=== PATIENT | male | born 1965 | race Two or more races ===

== ENCOUNTER 2021-08-26 11:37 | Outpatient (REF) | payer OTHER, SELFPAY ==
--- NOTE | ~2021-08-26 | XR_ITS ---
EXAMINATION: XR KNEE, RIGHT CLINICAL INFORMATION: Pain COMPARISON: None TECHNIQUE: Four views of the right knee. FINDINGS: The tricompartment joint space is maintained normal. No bony erosive changes. No loose bodies. There is anterior superior patellar enthesophyte. The soft tissues are normal. XR/XR knee RT 4V IMPRESSION: There is anterior superior patellar enthesophytes. No visible acute fracture, dislocation or subluxation seen.
== END 2021-08-26 11:38 | disposition home or self-care (01) ==
LOC: HO.XRAY 11:37
PROVIDERS: PCP Internal Medicine; Visit Provider Internal Medicine
DX: M25.561 Pain in right knee (principal)
CPT/HCPCS: 73564

== ENCOUNTER 2021-09-14 09:26 | Outpatient (REF) | payer OTHER, SELFPAY ==
--- NOTE | ~2021-09-14 | XR_ITS ---
EXAMINATION: XR LUMBOSACRAL SPINE CLINICAL INFORMATION: Low back pain. COMPARISON: None TECHNIQUE: Three views of the lumbosacral spine. FINDINGS: There is normal lumbar lordosis. The vertebral heights, alignment and disc heights are normal. There is no visible acute fracture, dislocation or lytic process seen. The paravertebral soft tissues are normal. XR/XR lumbar spine 2-3V IMPRESSION: Unremarkable lumbar spine exam.
== END 2021-09-14 09:27 | disposition home or self-care (01) ==
LOC: HO.XRAY 09:26
PROVIDERS: PCP Internal Medicine; Visit Provider Internal Medicine
DX: M54.9 Dorsalgia, unspecified (principal); R10.9 Unspecified abdominal pain
CPT/HCPCS: 72100

== ENCOUNTER 2022-04-04 09:37 | Outpatient (REF) | payer OTHER, SELFPAY ==
--- NOTE | ~2022-04-04 | CT_ITS ---
EXAMINATION: CT ABDOMEN AND PELVIS WITHOUT CONTRAST CLINICAL INFORMATION: Hematuria. Dysuria. Fever. COMPARISON: None TECHNIQUE: Multidetector volumetric imaging was performed from the superior aspect of the liver through the pubic symphysis. Sagittal and coronal reformatted images were obtained on the technologist's workstation. This CT examination was performed using dose optimization techniques as appropriate, variously including the following: *Automated exposure control *Adjustment of mA and/or kV according to patient size (this includes techniques or standardized protocols for targeted exams where dose is matched to indication/reason for exam; i.e. extremities or head) *Use of iterative reconstruction technique DLP: 668 mGy-cm FINDINGS: LUNG BASES: The visualized lung bases are unremarkable. LIVER, GALLBLADDER, AND BILIARY TREE: The liver is normal in size, shape, and attenuation. No focal hepatic lesion or biliary ductal dilatation is present. The gallbladder is unremarkable with no evidence of radiopaque gallstones, gallbladder wall thickening, or obvious pericholecystic inflammatory changes. PANCREAS: Unremarkable. SPLEEN: Unremarkable. ADRENAL GLANDS: Unremarkable. KIDNEYS AND URETERS: The kidneys are normal in size, shape, and attenuation. No hydronephrosis or hydroureter. Left lower pole 0.4 cm calculus is 14 cm from the posterior axillary line. Mild symmetric perinephric stranding. BLADDER: Unremarkable. GASTROINTESTINAL TRACT: The stomach is unremarkable. Normal caliber small bowel. No obstruction. Normal appendix. No colonic wall thickening or acute inflammation. No free air or free fluid. ABDOMINAL WALL: No significant hernia is appreciated. LYMPH NODES: Normal. VASCULAR: Normal caliber aorta with mild atherosclerotic calcification. PELVIC VISCERA: Calcifications in the prostate. Normal size prostate. OSSEOUS STRUCTURES: No acute or suspicious osseous abnormality. CT/CT abdomen pelvis wo IV con IMPRESSION: No acute findings in the abdomen or pelvis. No hydronephrosis. Nonobstructing left lower pole renal calculus. Fleischner guidelines were followed.
== END 2022-04-04 09:38 | disposition home or self-care (01) ==
LOC: HO.CT 09:37
PROVIDERS: PCP Internal Medicine; Visit Provider Family Medicine
DX: R31.9 Hematuria, unspecified (principal)
CPT/HCPCS: 74176

== ENCOUNTER → 2022-05-16 14:31 | Outpatient (BNVA) | payer OTHER, SELFPAY | PROVIDERS: PCP Internal Medicine; Visit Provider Nurse Practitioner Family | DX: R97.20 Elevated prostate specific antigen [PSA] (principal); N40.0 Benign prostatic hyperplasia without lower urinary tract symptoms; Z79.899 Other long term (current) drug therapy | CPT/HCPCS: 99202 ==

== ENCOUNTER 2022-06-03 12:20 | Outpatient (REF) | payer OTHER, SELFPAY ==
--- NOTE | ~2022-06-03 | US_ITS ---
EXAMINATION: US RETROPERITONEAL COMPLETE (RENAL) CLINICAL INFORMATION: Elevated prostate-specific antigen, benign prostatic hypertrophy, history of microscopic hematuria. COMPARISON: CT abdomen and pelvis without contrast dated 04/04/2022. TECHNIQUE: Real-time imaging of the kidneys and bladder. FINDINGS: RIGHT KIDNEY: 11.5 x 6.3 x 7.3 cm (SAG x AP x TRV). The kidney is normal in size, contour, and echogenicity. Renal cortical thickness is normal. No calculi or focal parenchymal lesions. No hydronephrosis. LEFT KIDNEY: 12.3 x 7.1 x 5.7 cm (SAG x AP x TRV). The kidney is normal in size, contour, and echogenicity. Renal cortical thickness is normal. No focal parenchymal lesions or hydronephrosis. 1.0 cm nonobstructing calculus in the lower pole. BLADDER: Distended urinary bladder measuring 556 mL. Post void residual of 11 mL. Bilateral ureteral jets are present. Prostate volume is 29 mL. US/US retroperitoneal comp IMPRESSION: 1.0 cm nonobstructing calculus in the lower left kidney.
== END 2022-06-03 12:21 | disposition home or self-care (01) ==
LOC: HO.HMGCX 12:20
PROVIDERS: PCP Internal Medicine; Visit Provider Nurse Practitioner Family
DX: R97.20 Elevated prostate specific antigen [PSA] (principal); N40.0 Benign prostatic hyperplasia without lower urinary tract symptoms
CPT/HCPCS: 76770

== ENCOUNTER 2022-06-16 07:22 | Outpatient (REF) | payer OTHER, SELFPAY | END 2022-06-16 07:23 | disposition home or self-care (01) | LOC: HO.LAB 07:22 | PROVIDERS: PCP Internal Medicine; Visit Provider Nurse Practitioner Family | DX: R97.20 Elevated prostate specific antigen [PSA] (principal) | CPT/HCPCS: 36415; 84153 ==

== ENCOUNTER → 2022-06-27 10:48 | Outpatient (BNVA) | payer OTHER, SELFPAY | PROVIDERS: PCP Internal Medicine; Visit Provider Nurse Practitioner Family | DX: N20.0 Calculus of kidney (principal); N28.1 Cyst of kidney, acquired; N40.0 Benign prostatic hyperplasia without lower urinary tract symptoms; R97.20 Elevated prostate specific antigen [PSA]; Z79.4 Long term (current) use of insulin; Z79.899 Other long term (current) drug therapy | CPT/HCPCS: 51798; 99212 ==

== ENCOUNTER → 2022-08-03 09:39 | Outpatient (BNVA) | payer OTHER, SELFPAY | PROVIDERS: PCP Internal Medicine; Visit Provider Nurse Practitioner Family | DX: N20.0 Calculus of kidney (principal); N28.1 Cyst of kidney, acquired | CPT/HCPCS: 99212 ==

== ENCOUNTER 2022-08-17 06:35 | Day surgery (SDC) | payer OTHER, SELFPAY ==
--- NOTE | 2022-08-16 10:19 | HO.ANESPROP2 ---
Documented by User: Sushma Orellana NP 08/16/22 10:20 HPI - Anesthesia Eval Consult details Narrative: 57yo M for Left ESWL PMFSH Active Problems Active Problems: All Active Problems (Updated 06/27/22 @ 19:16 by AJITH Wagner-) Nephrolithiasis (Acute) Renal cyst (Acute) BPH (benign prostatic hyperplasia) (Acute) Elevated PSA (Acute) Surgical History Surgical History (Updated 08/17/22 @ 07:23 by Shari Sharma RN) History of arthroscopy of right shoulder History of colonoscopy Social History Social History Patient Tobacco Use Status: Former Tobacco user Use of substances other than those prescribed or required for medical reasons: No Are you DNR?: No Advance Directives: No Advance Directives Information Provided: Yes Meds Allergies Allergy/AdvReac Type Severity Reaction Status Date / Time No Known Allergies Allergy Verified 08/03/22 14:22 Home Medications Medication Instructions Recorded Confirmed Last Taken Type atorvastatin 20 mg tablet 20 mg PO DAILY 05/13/22 08/03/22 Unknown History dulaglutide 0.75 mg/0.5 mL mg subcut QWEEK 05/13/22 08/03/22 Unknown History subcutaneous pen injector (Trulicity) gabapentin 800 mg tablet 800 mg PO TID 05/13/22 08/03/22 Unknown History lisinopril 10 1 tab PO DAILY 05/13/22 08/03/22 Unknown History mg-hydrochlorothiazide 12.5 mg tablet sildenafil 50 mg tablet (Viagra) 50 mg PO DAILY PRN 05/13/22 08/03/22 Unknown History Exam Exam Date and Time: August 16, 2022 1019 Assessment and Plan Assessment Anesthesia Assessment: Chart Reviewed Documented by User: Feng Trent MD 08/17/22 09:21 PMFSH Family History Family history of problems with anesthesia: No Surgical History Surgical History (Updated 08/17/22 @ 07:23 by Shari Sharma RN) History of arthroscopy of right shoulder History of colonoscopy History of Problems with Anesthesia: No Social History Social History Patient Tobacco Use Status: Former Tobacco user Use of substances other than those prescribed or required for medical reasons: No Are you DNR?: No Advance Directives: No Advance Directives Information Provided: Yes Meds Allergies Allergy/AdvReac Type Severity Reaction Status Date / Time No Known Allergies Allergy Verified 08/03/22 14:22 Home Medications Medication Instructions Recorded Confirmed Last Taken Type atorvastatin 20 mg tablet 20 mg PO DAILY 05/13/22 08/03/22 Unknown History dulaglutide 0.75 mg/0.5 mL mg subcut QWEEK 05/13/22 08/03/22 Unknown History subcutaneous pen injector (Trulicity) gabapentin 800 mg tablet 800 mg PO TID 05/13/22 08/03/22 Unknown History lisinopril 10 1 tab PO DAILY 05/13/22 08/03/22 Unknown History mg-hydrochlorothiazide 12.5 mg tablet sildenafil 50 mg tablet (Viagra) 50 mg PO DAILY PRN 05/13/22 08/03/22 Unknown History Exam Airway Mallampati Class: III TM Dist: <=3cm Neck ROM: Full Loose/Missing/Broken Teeth: No Heart: ok Lungs: ok Assessment and Plan Assessment Anesthesia Assessment: Anesthesia Plan Discussed Final Anesthetic Review Family History of Problems with Anesthesia: No History of Problems with Anesthesia: No NPO: Yes ASA Class: III Final Preanesthetic Review: No Changes in Pt Med Stat, Meds/Allgs Chart Reviewed, Consent Obtained/Reviewed and Anes Risks/Benef Reviewed Patient Risk: Intermediate Procedure Risk: Low Anesthetic Plan Anesthetic Plan: GA and Agree w/ Assess. and Plan Disposition: Standard PACU
--- NOTE | ~2022-08-17 | XR_ITS ---
EXAMINATION: XR ABDOMEN KUB CLINICAL INDICATION: Left kidney stone COMPARISON: None available. TECHNIQUE: AP view of the abdomen. FINDINGS: There is a large amount of stool in the colon especially right colon overlying the right kidney. There is a 6 no radiopaque calculi lower pole left kidney. No additional radiopaque calculi seen left kidney. There is no organomegaly. No gross bony abnormality. XR/XR KUB IMPRESSION: 1. 6 radiopaque calculi lower pole left kidney. 2. Moderate to significant constipation especially in the right colon overlying the right kidney.
[2022-08-17 07:24] VITALS: BP 142/77; PULSE 80; RESP 16; TEMP 36.4; O2SAT 97; BMI 37.7
[2022-08-17 07:38] LABS: Glucose, Whole Blood 172 mg/dL (60-115)
[2022-08-17] MEDS: Lactated Ringers 1,000 ML 100 ML IVCONT (07:43)
--- NOTE | 2022-08-17 07:47 | P.HPSUR_ITS ---
Pre-Procedural Eval Section A Date of Service: 08/17/22 The patient is an INPATIENT: No Changes since office visit: No Cold of Flu in the past 2 weeks, No New Medical Problems, No Changes in Medication and No Patient answered all questions The History & Physical has been completed within 30 days and I have reviewed it.: No Section B Chief Complaint: Calculus of kidney Details of Present Illness: left renal stone Relevant Social History: None Present Medications: see Short Stay Collaborative assessment Medical History: No relevant PMH History of Previous Operations: Relevant previous surgery/procedure and date(s) Allergies: Allergies Allergy/AdvReac Type Severity Reaction Status Date / Time No Known Allergies Allergy Verified 08/03/22 14:22 Review of Systems Sugical H&P ROS: Negative: Constitution, Cardiovascular, Respiratory, Neurological, Psychiatric, Hem-Onc, Allergic/Immunologic, Gastrointestinal, Genitourinary, Musculoskeletal, Integumentary, Endocrine and Eyes/Ears/No se/Throat Exam Surgical H&P Exam: Normal: HEENT, Normal: Heart, Normal: Lungs, Normal: Extremities, Normal: Abdomen, Normal: Skin and Normal: Neurological Plan Diagnosis/Plan: Unchanged (left eswl) I have reviewed the history and physical and performed a pertinent physical examination on my patient. No changes have occurred unless specified. Time Spent With Patient Time: Total time managing care of this patient today ____ minutes.
--- NOTE | 2022-08-17 09:26 | W.PM.OPN ---
Operative Note Operative Note Date of Service: 08/17/22 Narrative: PreOperative Diagnosis: left Renal stones Post Operative Diagnosis: left Renal stones Procedure: left ESWL Surgeon: Dr Wei Vernon Anesthesia: mac/sedation Indications for procedure: The patient understands ESWL may be a staged procedure and subsequent intervention may be required based on imaging after ESWL. Quoted stone clearance rates for a solitary procedure are in the 70-80% range based primarily on stone location. They also understand there is a risk of bleeding to the kidney, infection, damage to adjacent organs, and stone migration following the procedure. - Imaging 1cm lower pole Procedure: After informed consent was verified the patient was brought to the operating room and placed in a supine position. Anesthesia was performed per protocol. Safety pause time-out was performed. Imaging was displayed in the room and laterality confirmed. ESWL was performed. The 1st 500 shocks were performed at 60 hertz. These were performed with increasing power. Once maximum power was reached the rate was increased to 180 hertz. A total of 2500 shocks were given. Targeted imaging with ultrasound/fluoroscopy showed stone smudging suggestive of disintegration. The patient tolerated the procedure well and was transferred to the recovery area upon completion. Post procedure imaging will be organized. There was no evidence for flank discoloration.
[2022-08-17 09:48] VITALS: BP 132/69; PULSE 81; RESP 20; TEMP 36.6; O2SAT 97
[2022-08-17 09:53] VITALS: BP 130/76; PULSE 71; RESP 16; O2SAT 97
[2022-08-17 09:58] VITALS: BP 134/72; PULSE 70; RESP 17; O2SAT 97
[2022-08-17 10:03] VITALS: BP 132/68; PULSE 67; RESP 17; O2SAT 100
[2022-08-17] MEDS: oxyCODONE HCl Immed Release 5 MG TABLET PO (10:06)
[2022-08-17 10:22] VITALS: BP 150/75; PULSE 71; RESP 18; TEMP 36.1; O2SAT 99
== END 2022-08-17 11:36 | disposition home or self-care (01) ==
PROVIDERS: PCP Internal Medicine; Visit Provider Urology
PROC: (CPT 50590; principal; 2022-08-17 09:10)
DX: N20.0 Calculus of kidney (principal); N28.1 Cyst of kidney, acquired; N40.0 Benign prostatic hyperplasia without lower urinary tract symptoms; R97.20 Elevated prostate specific antigen [PSA]; Z79.85 Long-term (current) use of injectable non-insulin antidiabetic drugs; Z79.899 Other long term (current) drug therapy; Z87.891 Personal history of nicotine dependence
CPT/HCPCS: 50590; 74018; 82947; J0131; J1885; J3010

== ENCOUNTER 2023-05-22 12:14 | Outpatient (REF) | payer OTHER, SELFPAY ==
--- NOTE | ~2023-05-22 | XR_ITS ---
EXAMINATION: XR SHOULDER, LEFT CLINICAL INFORMATION: Pain. COMPARISON: None available. TECHNIQUE: AP external rotation, Grashey, scapular Y, and axillary views of the left shoulder. FINDINGS: Bony alignment and mineralization are normal. The glenohumeral joint is intact and shows mild osteoarthritic change. The acromioclavicular and coracoclavicular intervals are normal. No fracture or dislocation is seen. There is calcific tendinitis of the left rotator cuff insertion. No foreign body is seen. There is no left pneumothorax. XR/XR shoulder LT min 2V IMPRESSION: 1. 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 2. There is calcific tendinitis of the left rotator cuff insertion.
== END 2023-05-22 12:15 | disposition home or self-care (01) ==
LOC: HO.HMGCX 12:14
PROVIDERS: PCP Internal Medicine; Visit Provider Internal Medicine
DX: M25.512 Pain in left shoulder (principal); G89.29 Other chronic pain
CPT/HCPCS: 73030

== ENCOUNTER → 2024-03-18 15:21 | Outpatient (BNV) | payer OTHER, SELFPAY | PROVIDERS: PCP Internal Medicine; Visit Provider Radiology Diagnostic Radiology | DX: R06.2 Wheezing (principal) | CPT/HCPCS: 71046 ==

== ENCOUNTER 2024-04-23 09:56 | Outpatient (AMB) | payer OTHER, SELFPAY ==
--- NOTE | 2024-04-23 10:11 | MHC.OFFVIS ---
Vital Signs 04/23/24 10:18 Height 5 ft 9 in Weight 260 lb BMI 38.4 Intake Visit Reasons: CARETAKER RESORT-Trigger RF, LT hand/locking limited ROM Intake Note: Mark is a 59 year old right hand dominant male who presents today for a new patient evaluation of his left hand ring finger. States his finger is locking, especially in the morning. His symptoms presented about a year ago that has been getting worse. He also has limited ROM and no strength in his finger. He has numbness and tingling in the mornings. No known injury. No other tx. Allergies No Known Allergies Allergy (Verified 04/23/24 10:21) HPI HPI CARETAKER RESORT-Trigger RF, LT hand/locking limited ROM: Details: Mark is a 59 year old right hand dominant man who presents with complaints of his left ring finger locking. He complains of painful locking & catching of the left ring finger. He complains of weakness with waterproofer strength and says this is very painful for him. He reports intermittent numbness & tingling in his hands, not every day but occasionally. He says he has a NCS done on his right side several years ago, showing a pinched nerve somewhere . 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 Review of Systems Const All systems reviewed & are unremarkable except as noted in HPI and below Physical Exam Vital Signs: BMI result Body Mass Index 38.4 Const General: cooperative, healthy appearing and no acute distress Orientation/consciousness: patient oriented x3 HEENT Head: Yes normocephalic and Yes atraumatic Eyes EOM: EOMs intact bilaterally Resp Effort & Inspection: normal respiratory effort and able to speak in complete sentences Cardio Jugular venous distension: no JVD Skin General skin exam: turgor normal Rashes: no rashes Neuro General: patient oriented x3 Extrem Other: Evaluation of Left Upper Extremity: The patient is alert, oriented, and in no acute distress Neuro: Median, Ulnar, Radial nerves motor and sensory intact and sensation is normal to the tips of all digits No thenar or intrinsic wasting Good APB muscle belly firing and good finger cross Vascular: Cap refill brisk ROM: He can make a fist and extend all his digits Visible & palpable locking & catching of the ring finger Tender over the ring finger a1 gris Skin: No lacerations or abrasions. General: No Ecchymosis. No Erythema or evidence of infection. Psych Appearance: grossly normal Affect: normal affect Attitude: cooperative Assessment & Plan Assessment & Plan (1) Trigger finger, left ring finger: Code(s): M65.342 - Trigger finger, left ring finger Category: Medical (2) Bilateral hand numbness: Code(s): R20.0 - Anesthesia of skin Category: Medical (3) Diabetes mellitus: Code(s): E11.9 - Type 2 diabetes mellitus without complications Category: Medical Plan Assessment & Plan: 1. Left ring finger trigger finger I educated him about this condition I discussed operative and non-operative treatment options The patient would like to proceed with surgery The risks and benefits of operative treatment were discussed with the patient and the patient wishes to proceed with surgery. These risks include, but are not limited to risk of damage to blood vessels, nerves, tendons, infection, recurrence, incomplete relief of preoperative symptoms, persistent pain, possible need for further surgery and the risks associated with regional blocks and anesthesia. The plan is to take the patient to the operating room sometime in the next few weeks for the following procedures: 1. Left ring finger trigger release, under local All of the preoperative paperwork including the consent was reviewed today. All the patient's questions were answered. The patient understands that they will be contacted by our surgery aide soon to schedule this procedure He denies blood thinners, asthma, heart, lung, kidney issues He is a Diabetic, his most recent HgA1c was 6.5% 2. Bilateral hand numbness Symptoms intermittent, and occasional, primarily in the mornings He is unsure how often this occurs, and in what specific fingers He does not really want a nerve conduction study right now. We will wait and see how he is doing following his trigger release Scribed for Mercedes Bender MD by Zenon Perera medical records supervisor, on 04/23/24 at 10:40 AM, EST. Coding Level of Care Code New Pt Level 4 (11691) Diagnoses Trigger finger, left ring finger M65.342 Bilateral hand numbness R20.0 Diabetes mellitus E11.9
[2024-04-23 10:18] VITALS: BMI 38.4
--- OUTSIDE RECORDS SUMMARY | 2024-04-23 11:27 | XMS_ITS | Encounter Summary ---
Author Organization [employer] Address [address] 7 [place] [address] Care Team Providers Care Hydro Excavation Operator Name Role Phone Joseph Guerrero MD Primary Care Provider [phone] Reason for Visit * Reason Onset Date Comments Call Back Request 07/28/2023 Encounter Details Date Type Department Care Team (Late st Contact Info) Description 07/28/[address] [facility] [address] [place] [address] Joseph Guerrero MD [address] [place] [address] Call Back Request Social History Tobacco Use Types Packs/Day Years Used Date Smoking Tobacco: Former Cigarettes 1 18 1 7 - 2004 Passive Smoke Exposure: Never Smokeless Tobacco: Former Quit: 2004 Alcohol Use Standard Drinks/Week Comments Not Currently 0 (1 standard drink = 0.6 oz pur e alcohol) Depression Answer Date Recorded Patient Health Questionnaire-9 Score 0 02/10/2022 Depression Answer Date Recorded Patient Health Questionnaire-2 Score 0 02/10/2022 Sex and Gender Information Value Date Recorded Sex Assigned at Male 12/27/2021 10:34 AM EDT Legal Sex Male 10:34 AM EDT Gender Identity Male 12/27/2021 10:34 AM EDT Sexual Orientation Straight 06/03/2022 10 :16 AM EDT documented as of this encounter Miscellaneous Notes * Telephone Encounter - Wing Tuyet RN - 07/28/2023 1:36 PM EDT Tc to pt to explained that Trulicity 4.5 mg written on 07/05 is already at the [facility] pharmacy. Unable to reach pt, left message for pt to call back. * Telephone Encounter - Mariely Jiménez - 07/28/2023 12:12 PM EDT Tc from pt requesting a call back, pt is requesting Trulicity 3MG to be send to [facility]acy. documented in this encounter Plan of Treatment Upcoming Encounters Date Type Department Care Team (Late st Contact Info) Description 06/04/2024 10:00 AM EDT Office Visit [facility] [address] [place] [address] Joseph Guerrero MD [address] [place] [address] documented as of this encounter Visit Diagnoses Not on filedocumented in this encounter Additional Health Concerns Assessment Noted Time PHQ-9 Depression Total Score: 0 02/11/20 22 10:58 AM EST documented as of this encounter Care Teams Hydro Excavation Operator Relationship Specialty Start Date End Date Joseph Guerrero MD [address] [place] [address] PCP - General Internal Medicine 11/22/17 documented as of this encounter
--- OUTSIDE RECORDS SUMMARY | 2024-04-23 11:27 | XMS_ITS | Encounter Summary ---
Author Organization [employer] Address [address] [place] [address] [address] [place] [address] Care Team Providers Care Machine Ii Engraver Name Role Phone Joseph Guerrero MD Primary Care Provider [phone] Encounter Details Date Type Department Care Team ([facility] Contact Info) Description 05/26/2023 Orders Only [facility] [address] [place], [place] [phone] Josehp Guerrero MD [address] [place], [place] [phone] Social History Tobacco Use Types Packs/Day Years Used Date Smoking Tobacco: Former Cigarettes 1 18 1 987 - 2004 Passive Smoke Exposure: Never Smokeless [...] AM EDT documented as of this encounter Plan of Treatment Upcoming Encounters Date Type Department Care Team ([facility] Contact Info) Description 06/04/2024 10:00 AM EDT Office Visit [facility] [address] [place], [place] [phone] Joseph Guerrero MD [address] [place] [address] documented as of this encounter Visit Diagnoses Not on filedocumented in this encounter Additional Health Concerns Assessment Noted Time PHQ-9 Depression Total Score: 0 02/11/20 22 10:58 AM EST documented as of this encounter Care Teams Machine Ii Engraver Relationship Specialty Start Date End Date Joseph Guerrero MD [address] [place] [address] PCP - General Internal Medicine 11/22/17 documented as of this encounter
--- OUTSIDE RECORDS SUMMARY | 2024-04-23 11:27 | XMS_ITS | Encounter Summary ---
Author Organization [employer] [facility] Address [address] [place] [address] [address] [place] [address] Care Team Providers Care Longwall Shearer Operator Name Role Phone Joseph Guerrero MD Primary Care Provider [phone]- [phone] Encounter Details Date Type Department Care Team (Late st Contact Info) Description 11/20/2023 Orders Only [facility] [address] [place], [place] [phone] ProviderAdam MD Social History Tobacco Use Types Packs/Day Years [...] 10:00 AM EDT Office Visit [facility] [address] [place], [place] [phone] Joseph Guerrero MD [address] [place] [address] documented as of this encounter Procedures Procedure Name Priority Date/Time Associated Diagnosis Comments HM COLONOSCOPY Routine 11/20/2023 4:09 PM EDT HM COLONOSCOPY Routine 11/20/2023 4:06 PM EDT documented in this encounter Results * Hm Colonoscopy (11/20/2023 4:09 PM EDT) us Historical Provider HEALTH MAINTENANCE Final Result * Hm Colonoscopy (11/20/2023 4:06 PM EDT) us Historical Provider HEALTH MAINTENANCE Final Result documented in this encounter Visit Diagnoses Not on filedocumented in this encounter Additional Health Concerns Assessment Noted Time PHQ-9 Depression Total Score: 0 02/11/20 22 10:58 AM EST documented as of this encounter Care Teams Longwall Shearer Operator Relationship Specialty Start Date End Date Joseph Guerrero MD [address] [place] [id number] PCP - General Internal Medicine 11/22/17 documented as of this encounter
--- OUTSIDE RECORDS SUMMARY | 2024-04-23 11:28 | XMS_ITS | Clinical Summary ---
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 Phone Joseph Guerrero MD Primary Care Provider Allergies No known active allergies Medications diclofenac (Cataflam) 50 MG tablet take 1 tablet by oral route 3 times every day 2 Active HYDROcodone-acet aminophen (Niotaze) 5-325 MG tablet take 1 tablet by oral route every 4 - 6 hours as needed for pain 1 Active metFORMIN (Glucophage) 500 MG tablet take 1 tablet by oral route 2 times every day with morning and evening meals 1 Active Blood Pressure Monitoring (Comfort Touch BP Cuff/Medium) misc Active tamsulosin (Flomax) 0.4 MG 24 hr capsuleIndicatio ns:Kidney stone TAKE ONE CAPSULE DAILY 30 MINUTES FOLLOWING THE SAME MEAL EACH DAY 28 capsule 3 Active diphenhydrAMINE (BENADryl) 25 MG tabletIndication s:Adjustment insomnia Take 1 tablet (25 mg) by mouth if needed at bedtime for sleep. 2 tabs at bedtime 30 tablet 3 Active atorvastatin (Lipitor) 20 MG tablet TAKE ONE TABLET BY MOUTH EVERY DAY 90 tablet 1 4 Active famotidine (Pepcid) 20 MG tabletIndication s:Post-nasal drip Take 1 tablet (20 mg) by mouth Once per day. 30 tablet 1 4 06/21/19 25 Active pseudoephedrine (Sudafed) 30 MG tabletIndication s:Other cough Take 1 tablet (30 mg) by mouth every 4 (four) hours if needed for congestion for up to 10 days. 30 tablet 4 Active albuterol 108 (90 Base) MCG/ACT inhalerIndicatio ns:Other cough Inhale 2 puffs every 4 (four) hours if needed for wheezing. 18 g 4 06/21/19 25 Active Diclofenac Sodium 1 % gelIndications:A rthritis of left shoulder region To apply to the affected area 3 times a day 100 g 4 Active dulaglutide (Trulicity) 4.5 MG/0.5ML solution pen-injectorIndi cations:Type 2 diabetes mellitus with diabetic neuropathy, without long-term current use of insulin ([facility]),Obesit y (BMI 30-39.9) Inject 4.5 mg under the skin 1 (one) time per week. 4 each 11 4 Active gabapentin (Neurontin) 800 MG tablet TAKE ONE TABLET BY MOUTH THREE TIMES DAILY 90 tablet 2 4 Active Viagra 50 MG tabletIndication s:Other male erectile dysfunction TAKE 1 TABLET 1 HOUR BEFORE SEXUAL RELATIONS ONCE DAILY NEEDED. 8 tablet 5 4 Active losartan-hydroCH LOROthiazide (Hyzaar) 50-12.5 MG tabletIndication s:Primary hypertension,Whe ezing Take 1 tablet by mouth Once per day. 30 tablet 11 5 03/05/19 26 Active melatonin 5 MG tablet TAKE ONE TABLET AT BEDTIME 30 tablet 3 5 Active Active Problems Problem Noted Date Diagnosed Date Meralgia paresthetica of left side 03/05/2024 Dysuria 03/31/2022 Assessment & Plan (03/31/2022 11:37 AM EST): Patient febrile with dysuria, and fever, Dipstick with blood and LE, will start levofloxacin. No CVAT. Will send labs, UCx and CT given hematuria with pain Hematuria 03/31/2022 Assessment & Plan (03/31/2022 11:38 AM EST): Hematuria with pain, will send labs and STAT CT abdomino-pelvis w/o contrast, will followup with results Hypertensive disorder 02/02/2022 Neuropathy due to type 2 diabetes mellitus 02/02 Type 2 diabetes mellitus 02/02/2022 Erectile dysfunction 12/01/2020 Microhematuria 06/22/2017 Encounters Date Type Department Care Team Description 03/15/2024 Refill [facility] [address] [place] [address] Joseph Guerrero MD 03/06/2024 Travel 03/05/2024 2:45 PM EST Office Visit [facility] [address] [place] [address] Joseph Guerrero MD Annual physical exam (Primary Dx); Primary hypertension; Type 2 diabetes mellitus with diabetic neuropathy, without long-term current use of insulin ([facility]); Meralgia paresthetica of left side; Wheezing; Trigger ring finger of left hand 03/05/2024 Travel 02/26/2024 Patient Outreach [facility] [address] [place] [address] Joseph Guerrero MD Pre-visit Planning ([facility] unable to reach [facility]) 01/22/2024 Telephone [facility] [address] [place] [address] Joseph Guerrero MD Chart Prep from Last 3 Months Immunizations Name Administration Dates Next Due Influenza Injectable Quadriv alant Preservative Free IIV4 MDCK 12/30/2021 Influenza injectable quadrivalent preservative f ree 02/05/2021,12/11/2019 Moderna Covid-19 Vaccine 12+ 06/15/2020,05/18/19 21 Pneumococcal Polysaccharide PPSV23 12/11/2019 Tdap 04/20/2022,11/22/2017 Zoster, Recombinant 12/11/2019 Social History Tobacco Use Types Packs/Day Years Used Date Smoking Tobacco: Former Cigarettes 1 18 1 7 - 2004 Passive Smoke Exposure: Never Smokeless Tobacco: Former Quit: 2004 Tobacco Cessation:Counseling Given: Not Answered Alcohol Use Standard Drinks/Week Comments Not Currently [...] Orientation Straight 06/03/2022 10 :16 AM EDT Last Filed Vital Signs Vital Sign Reading Time Taken Comments Blood Pressure 152/85 03/05/2024 2:53 PM EST Pulse 78 03/05/2024 2:53 PM EST Temperature 36.6 ??C (97.8 ??F) 03/05/2024 2:53 PM ES T Respiratory Rate 20 03/05/2024 2:53 PM EST Oxygen Saturation 99% 03/05/2024 2:53 PM EST Inhaled Oxygen Concentration - - Weight 119 kg (263 lb) 03/05/2024 2:53 PM EST Height 175.3 cm (5' 9 ) 03/05/2024 2:53 PM EST Body Mass Index 38.84 03/05/2024 2:53 PM EST Plan of Treatment Upcoming Encounters Date Type Department Care Team (Late st Contact Info) Description 06/04/2024 10:00 AM EDT Office Visit [facility] [address] [place] [address] Joseph Guerrero MD [address] [place] [address] Health Maintenance Due Date Last Done Comments CT Colonography 1965 Dental Oral Exam 1965 Dental Prophylaxis 1965 FIT DNA/Cologuard 1965 FIT 1965 FOBT 1965 HIV Screening 1965 SDOH Screening 1965 Sigmoidoscopy 1965 Alcohol/Substance Use Screening 1977 Hepatitis C Screening 1983 Hepatitis B Vaccines (1 of 3 - 19+ 3-dose series) 1984 Zoster Vaccines (2 of 2) 02/05/2020 12/11/2019 Diabetes: Urine Protein Screening 12/02/2020 12/03/2019 Pneumococcal Vaccine: 50+ Years (2 of 2 - PCV) 12/10/2020 12/11/2019 Lipid Panel 04/22/2022 04/22/2021, 12/03/2019 Depression Screening 02/10/2023 02/10/2022, 02/11/20 Dental X-Ray: Bitewings 06/05/2023 06/03/2022 Diabetes: Foot Exam 10/13/2023 10/12/2022, 10/12/2022, 10/12/2022, Additional history exists Influenza Vaccine (#1) 2023 , 02/05/2021, 12/11/2019 Diabetes: Hemoglobin A1C 09/02/2024 025, 06/21/2023, 03/06/2023, Additional history exists Tobacco Screening 03/05/2025 03/05/2024 Dental X-Ray: Full Mouth 06/04/2025 06/03/2022 Eye Exam 09/27/2025 09/28/2023, 08/0 02/2023, 09/28/2023, Additional history exists DTaP/Tdap/Td Vaccines (3 - Td or Tdap) 04/20/2032 04/20/2022, 11/22/2017 Colonoscopy 11/19/2033 11/20/2023, 11/20/2023 Colorectal Cancer Screening 11/19/2033 RSV Patients and Patients Aged 60 years or older (1 - 1-dose 75+ series) 2040 COVID-19 Vaccine Completed 12/27/2023, , 12/30/2021, Additional history exists HIB Vaccines Aged Out No longer eligi ble based on patient's age to complete this topic HPV Vaccines Aged Out No longer eligi ble based on patient's age to complete this topic Hepatitis A Vaccines Aged Out No long er eligible based on patient's age to complete this topic IPV Vaccines Aged Out No longer eligi ble based on patient's age to complete this topic Meningococcal Vaccine Aged Out No cathryn charla eligible based on patient's age to complete this topic RSV under 20 months Aged Out No longe r eligible based on patient's age to complete this topic Rotavirus Vaccines Aged Out No longer eligible based on patient's age to complete this topic Procedures Procedure Name Priority Date/Time Associated Diagnosis Comments XR CHEST 2 VIEWS Routine 03/18/2024 3:21 PM EST Wheezing POCT GLUCOSE Routine 03/05/2024 4:06 PM EST Type 2 diabetes mellitus with diabetic neuropathy, without long-term current use of insulin ([facility]) POCT GLYCATED HEMOGLOBIN, TOTAL Routine 03/05/2024 4:05 PM EST Type 2 diabetes mellitus with diabetic neuropathy, without long-term current use of insulin ([facility]) HM COLONOSCOPY Routine 11/20/2023 4:06 PM EDT INTRAORAL - COMPLETE SERIES OF RADIOGRAPHIC IMAGES Routine 06/03/2022 10:00 AM EDT LIPID PANEL, STANDARD Routine 04/22/2021 8:31 AM EST ALBUMIN, RANDOM URINE W/CREATININE Routine 12/03/2019 8:24 AM EDT from Last 3 Months or Most Recently Relevant to Health Maintenance Results * XR Chest 2 Views (03/18/2024 3:21 PM EST) Anatomical Region Laterality Modality Chest Radiographic Eveline ging 03/18/2024 3:21 PM EST Narrative 03/18/2024 4:07 PM EST ? [facility] ?[address] [facility] ? [place] [address] ?XRay Report ? Signed ? Patient: Amado,Mark ?MR#: [id number] ? : 1965 ?Acct:[id number] ? Age/Sex: 58 / M ?ADM Date: 03/18/24 ? Loc: HO.HMGCX ? Attending Dr: Joseph Guerrero MD ? Ordering Physician: Joseph Guerrero MD ?? Date of Service: 03/18/24 ?? Procedure(s): XR chest 2V ?? Accession Number(s): [id number] ? cc: Joseph Guerrero MD ? EXAMINATION: ?? XR CHEST ? CLINICAL INFORMATION: ?? wheezing x 1 year ? COMPARISON: ?? None available. ? TECHNIQUE: ?? 2 views of the chest were obtained. ? FINDINGS: ?? No significant abnormality is noted involving the heart, lungs, ?? mediastinum, bony thorax or soft tissues. ? XR/XR chest 2V ?? IMPRESSION: ?? Unremarkable chest examination. ? Electronically signed by: ??Rocco Fan MD ??03/18/2024 04:04 PM EST RP ? Dictated By: ?Mita,Rocco S MD ? Signed By: ?<Electronically signed by Rocco S Mita, MD in OV> ?03/18/24 1604 ? DD/ 1521 ? TD/TT: 03/18/24 1525 ? Bias Binding Cutter: FANNY ? Procedure Note Donhazelter, Image - 03/18/2024 [facility] Adult [facility] [address] [place] [address] [place] [address] XRay Report Signed Patient: Kaylin Fischer#: [id number] : 1965Acct:[id number] Age/Sex: 58 / MADM Date: 03/18/24 [facility] Dr: Joseph Guerrero MD Ordering Physician: Joseph Guerrero MD Date of Service: 03/18/24 Procedure(s): XR chest 2V Accession Number(s): [id number] cc: Joseph Guerrero MD EXAMINATION: XR CHEST CLINICAL INFORMATION: wheezing x 1 year COMPARISON: None available. TECHNIQUE: 2 views of the chest were obtained. FINDINGS: No significant abnormality is noted involving the heart, lungs, mediastinum, bony thorax or soft tissues. XR/XR chest 2V IMPRESSION: Unremarkable chest examination. Electronically signed by: Rocco Fan MD 03/18/2024 04:04 PM EST Dictated By: Rocco Fan MD Signed By: <Electronically signed by Rocco Fan MD in OV> 03/18/24 1604 DD/ 1521 TD/TT: 03/18/24 1525 Bias Binding Cutter: FANNY us Joseph Guerrero MD IMG XR PROCEDURES Final Res ult * POCT Glucose (03/05/2024 4:06 PM EST) Glucose Blood, POC 153 60 - 200 mg/dL QC Media Lot # [id number] Lot# Expiration Date 482,[id number] Blood Capillary blood specimen / Unknown 03/05/2024 4:06 PM EST Joseph Guerrero MD POINT OF CARE TEST ENTER/ED IT ORDERABLES Final Result * (ABNORMAL) POCT HGB A1C (03/05/2024 4:05 PM EST) Hemoglobin A1C 6.5(A) 4.0 - 6.0 % QC Media Lot # [id number] Comment:RANDOM Lot# Expiration Date [id number] Blood 03/05/2024 4:05 PM EST Joseph Guerrero MD POINT OF CARE TEST ENTER/ED IT ORDERABLES Final Result * Hm Colonoscopy (11/20/2023 4:06 PM EDT) Historical Provider HEALTH MAINTENANCE Final Result * (ABNORMAL) LIPID PANEL, STANDARD (04/22/2021 8:31 AM EST) Chol/HDLC Ratio 3.3 <5.0 (calc) [facility] Cholesterol, Total 150 <200 mg/dL [facility] HDL Cholesterol 46 > OR = 40 mg/dL [facility] LDL Cholesterol 77 mg/dL (calc) [facility] Comment: Reference range: <100 ?? Desirable range <100 mg/dL for primary prevention; ?? <70 mg/dL for patients with CHD or diabetic patients ?? with > or = 2 CHD risk factors. ?? LDL-C is now calculated using the Kat ?? calculation, which is a validated novel method providing ?? better accuracy than the Friedewald equation in the ?? estimation of LDL-C. ?? Matt RAMIREZ et al. MARBIN. 2013;310(19): 2018-5508 ?? (http://education.Connectv.com/faq/BHF081) Non-HDL Cholesterol 104 <130 mg/dL (calc) [facility] Comment: For patients with diabetes plus 1 major ASCVD risk ?? factor, treating to a non-HDL-C goal of <100 mg/dL ?? (LDL-C of <70 mg/dL) is considered a therapeutic ?? option. Triglycerides 178(H) <150 mg/dL [facility] 04/22/2021 8:31 AM EST us Joseph Guerrero MD LAB BLOOD ORDERABLES Final Result Performing Organization Address [facility] de Phone Number [facility] [address] * ALBUMIN, RANDOM URINE W/CREATININE (12/03/2019 8:24 AM EDT) Microalbumin Urine 4.2 See Note: mg/dL [facility] Comment: Reference Range: ?? Reference Range Not established Microalb/Creat Ratio 18 <30 mcg/mg creat [facility] Comment: ?? The ADA defines abnormalities in albumin excretion as follows: ?? Category ? Result (mcg/mg creatinine) ?? Normal ?<30 Microalbuminuria ? 30-299 ?? Clinical albuminuria ?? > OR = 300 ?? The ADA recommends that at least two of three specimens collected within a 3-6 month period be abnormal before considering a patient to be within a diagnostic category. 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
--- OUTSIDE RECORDS SUMMARY | 2024-04-23 11:28 | XMS_ITS | Data Portability ---
Author Organization HALLE Nguyen s, [address] Address [address] [place] [address] Assessment No assessment recorded. Plan of Treatment Reminders Order Date Submit Date Provider Last Modified By Organization Details Last Modified Time Details Appointments None recorded. Lab streptococc us group A, culture, throat 2022 023 [email or web address] [facility] ([facility], [address] [place] [address], [place], [address], 3 08:06:51 SARS CoV 2 (COVID-19) Ag, QL, [place], upper respiratory specimen 2022 023 [facility], [address] [place], [address], 3 08:58:10 rapid strep group A, throat 2022 023 [email or web address] [facility], [address] [place], [address], 3 08:51:23 rapid flu (A+B) 2022 023 [facility], [address] [place], [address], 3 08:57:01 Referral None recorded. Procedures None recorded. Surgeries None recorded. Imaging XR, chest, 2 view 2022 023 [email or web address] [facility], [address] [place] [address], [place], [address], 10:34:17 Medication Orders doxycycline hyclate 100 mg capsule 2022 023 [facility], [address] [place] [address], [id number], 3 12:58:50 ProAir HFA 90 mcg/actuati on aerosol inhaler 2022 023 [facility], [address] [place], [place], [id number], 3 13:48:22 benzonatate 100 mg capsule 2022 023 [facility], [address] [place] [address], [id number], 12:58:50 Patient TargetsNo targets recorded. Patient Instructions Encounter Date Encounter Id Patient Instructions Last Modified By Organization Details Last Modified Time 09/22/2022 [id number] sore throat: car e instructions [email or web address] Not available 09/22/2022 08:50:22 Based on clinica l presentation, you are being diagnosed with Pneumonia. I am going to treat with an antibiotic. I would recommend a follow up visit with your PCP in 2 DAYS to assess improvement. Take Tylenol for fever. You are going to have to have a repeat chest x-ray in 4 weeks. Non-Pharmacologic al treatment for coughin. Throat lozenges 2. Hot tea with Honey 4. Avoidance of second hand smoke. I would plan on being seen again if any of the following symptoms develop: 1. Fever> 102.5 2. Shortness of breath 3. Wheezing 4. Worsening Cough. I would go to the ER if you develop: 1. Severe Shortness of breath 2. Chest Pain 3. Wheezing 4. Coughing up Blood [email or web address] Not available 09/24/2022 16:37:53 Assessment: Community-acquire d pneumonia with no evidence of hypoxia, severe increased work of breathing, tachypnea, altered mental status, advanced age. Low CURB 65 score and risk for adverse outcome at this time. CXR showed developing infiltrate. Discussed with patient. Pt well hydrated and nontoxic looking. Discussed options regarding home or ER. Through shared decision making, patient would like to try oral abx first with close f.u. Plan: Trial antibiotics with close follow-up. Additional verbal discharge instructions as well as STRICT ED precautions were reviewed with the patient, and the patient is in agreement with the plan. [email or web address] Not available 09/24/2022 16:43:35 Reason for Referral None Reported. Results Created Date Observation Date Name Description Value Unit Range Abnormal Flag Note LastModifiedBy Organization Detail LastModifiedTime 09/23/1909/25/2022 BETA STREP GP A CULTU RE beta strep gp A culture NEGATI VE Refer ence Range : Negat thai Not Available [facility] ([facility]) [address] [facility], [place], [address], 09/25/2022 08:06:51 09/23/1909/22/2022 SARS CoV 2 (COVI D-19) Ag, QL, IA, upper respi rator y speci men Unknown Analyte negati ve Not Available [address] [place], [address], 09/22/2022 08:47:51 09/23/1909/22/2022 rapid flu (A+B) Unknown Analyte negati ve Not Available [address] [place], [address], 09/22/2022 08:48:07 09/23/1909/22/2022 rapid flu (A+B) Unknown Analyte negati ve Not Available [address] [place], [address], 09/22/2022 08:48:07 09/23/1909/22/2022 rapid strep group A, throa t Unknown Analyte negati ve Not Available [address] [place], [address], 09/22/2022 08:47:58 09/23/19 23 09/22/2022 rapid strep group A, throa t Unknown Analyte Negati ve Not Available [address] [place], [address], 09/22/2022 08:47:58 09/23/19 23 09/22/2022 rapid strep group A, throa t Unknown Analyte yes Not Available [address] [place], [address], 09/22/2022 08:47:58 09/23/19 23 09/22/2022 XR, chest , 2 view No observ ation record ed. [email or web address] [facility] [address] [facility] [place], [address], 09/22/2022 16:15:30 Result Notes None recorded. Problems Name Problem SNOMED Code Status Onset Date Resolution Date Notes Provider Name and Address Organization Details Recorded Time Diabetes mellitus 47988998 Active 2022 Esme Hays null, PA - [facility] 3 08:39:01 Hyperlipidemia 33266567 Active 2022 Esme Hays null, PA - [facility] 3 08:39:07 Hypertensive disorder 51148891 Active 2022 Esme Hays null, PA - [facility] 3 08:39:11 Problem Notes None recorded. Procedures Surgical History Date Name Laterality Status Provider Name and Address Organization Details Recorded Time plastic repair of rotator cuff of shoulder completed Esme Hays PA - [facility] 09/22/2022 08:40:04 Imaging Results Imaging Date Name Status LastModified by Organiz ation Details LastModified Time 09/22/2022 XR, chest, 2 view completed [email or web address] [facility] [address] [place], [address], 09/22/2022 16:15:30 Procedure Notes None recorded. Medical Equipment None Reported. Allergies No known drug allergies Medications Name Sig Start Date Stop Date Status Note LastModified by Organization Details LastModified Time metformin 500 mg tablet TAKE ONE TABLET BY MOUTH TWICE DAILY IN THE MORNING AND EVENING WITH MEALS 09/22 completed Not Available Not Available Not Available doxycycline hyclate 100 mg capsule Take 1 capsule twice a day by oral route for 7 days. 2022 active Not Available Not Available Not Avai lable atorvastati n 20 mg tablet TAKE ONE TABLET BY MOUTH EVERY DAY active Not Available Not Available No t Available Viagra 50 mg tablet TAKE 1 TABLET 1 HOUR BEFORE SEXUAL RELATIONS ONCE DAILY NEEDED. active Not Available Not Available No t Available tramadol 50 mg tablet TAKE ONE TABLET BY MOUTH EVERY 6 HOURS NEEDED FOR PAIN active Not Available Not Available No t Available tamsulosin 0.4 mg capsule TAKE ONE CAPSULE BY MOUTH AT BEDTIME FOR FOURTEEN DAYS active Not Available Not Available No t Available gabapentin 800 mg tablet TAKE ONE TABLET BY MOUTH THREE TIMES DAILY active Not Available Not Available No t Available benzonatate 100 mg capsule Take 1 capsule 3 times a day by oral route as needed for 5 days. 2022 active Not Available Not Available Not Avai lable pyridoxine (vitamin B6) 100 mg tablet TAKE ONE TABLET BY MOUTH EVERY DAY active Not Available Not Available No t Available lisinopril 10 mg-hydrochl orothiazide 12.5 mg tablet TAKE ONE TABLET BY MOUTH ONCE DAILY active Not Available Not Available No t Available levofloxaci n 750 mg tablet TAKE ONE TABLET DAILY UNTIL FINISHED active Not Available Not Available No t Available naproxen 500 mg tablet TAKE ONE TABLET BY MOUTH TWICE DAILY FOR 7 DAYS 09/22 completed Not Available Not Available Not Available Ventolin HFA 90 mcg/actuati on aerosol inhaler INHALE TWO PUFFS EVERY 4 HOURS NEEDED active Not Available Not Available No t Available melatonin 5 mg tablet TAKE ONE TABLET AT BEDTIME active Not Available Not Available No t Available Trulicity 0.75 mg/0.5 mL subcutaneou s pen injector INJECT ONE PEN (=0.75MG) SUBCUTANE OUSLY ONCE A WEEK DIRECTED active Not Available Not Available No t Available Vitals Date Recorded Body height Body mass index (BMI) Body weight Pain severity - 0-10 verbal numeric rating [Score] - Reported Body temperature Respiratory rate Heart rate Oxygen saturation Oxygen saturation in Arterial blood by Pulse oximetry Systolic blood pressure Diastolic blood pressure Provider Name and Address Organization Details Last Updated DateTime 3 175.26 cm 37.7 kg/m2 208068. 05 g 6 98 [degF] 18 /min 75 /min 98 % 98 % 136 mm[Hg] 86 mm[Hg] Esme Rao [facility] 3 08:38:13 Social History Question Answer Notes LastModified by Organizat ion Details LastModified Time Tobacco Smoking Status Never Smoker Esme johnson PA Maira [facility] 09/22/2022 08:47:46 What Is Your Level Of Alcohol Consumption? None Information not available 09/22/2022 Do You Use Any Illicit Or Recreational Drugs? No Information not available 09/22/2022 Have You Recently Traveled Abroad? No Information not available 09/22/2022 Do You Or Have You Ever Used Any Other Forms Of Tobacco Or Nicotine? No Information not available 09/22/2022 Sex: Unknown Functional Status None recorded. Mental Status None recorded. Family History Relationship Description Onset Age of this Age Resolved Age Notes LastModified by Organization Details LastModified Time Father No current problems or disability Not available 09/22 08:39:15 Mother No current problems or disability Not available 09/22 08:39:15 Medical History No medical history recorded. Immunizations Vaccine Type Date Status Note Provider Nam e and Address Organization Details Recorded Time Influenza, MDCK, quadrivalent, PF 2 completed Esme johnson PA - [facility] 09/22/2022 08:47:29 zoster recombinant 0 completed Esme johnson PA - [facility] 09/22/2022 08:47:29 COVID-19, mRNA, LNP-S, PF, 100 mcg/0.5mL dose or 50 mcg/0.25mL dose 1 completed Esme johnson PA - [facility] 09/22/2022 08:47:29 COVID-19, mRNA, LNP-S, PF, 100 mcg/0.5mL dose or 50 mcg/0.25mL dose 1 completed Esme johnson PA - [facility] 09/22/2022 08:47:29 COVID-19, mRNA, LNP-S, PF, 100 mcg/0.5mL dose or 50 mcg/0.25mL dose 1 completed Esme Hays null, PA - [facility] 09/22/2022 08:47:29 COVID-19, mRNA, LNP-S, bivalent, PF, 50 mcg/0.5 mL or 25mcg/0.25 mL dose 2 completed Esme Hays null, PA - [facility] 09/22/2022 08:47:29 pneumococcal polysaccharide PPV23 0 completed Esme Hays null, PA - [facility] 09/22/2022 08:47:29 Tdap 3 completed Esme Hays null, PA - [facility] 09/22/2022 08:47:29 Tdap 8 completed Esme Hays null, PA - [facility] 09/22/2022 08:47:29 Influenza, split virus, quadrivalent, PF 0 completed Esme Hays null, PA - [facility] 09/22/2022 08:47:29 Influenza, split virus, quadrivalent, PF 1 completed Esme Hays null, PA - [facility] 09/22/2022 08:47:29 Past Encounters Encounter ID Performer Location Encounter Start Date Encounter Closed Date Diagnosis/Indication Diagnosis SNOMED-CT Code Diagnosis ICD10 Code Diagnosis Note [id number] [address] [place] [address] 07/27/2016 14:55:19 07/27/2016 15:28:56 [id number] [address] [place] [address] 08/05/2016 13:25:45 08/05/2016 13:56:06 [id number] [address] [place] [address] 07/29/2016 14:56:16 07/29/2016 15:33:02 [id number] [address] [facility] [place] [address] 07/26/2016 15:11:17 07/26/2016 15:58:59 [id number] HALLE BRAGG [id number] [place] [address] 09/22/2022 08:04:04 09/22/2022 10:34:17 Acute bronchitis 39444204 J20.9 Acute pharyngitis 676850 003 J02.9 Community acquired pneumonia 068252076 J18.9 Health Concerns Section Related Observation LastModified by Organization Detai ls LastModified Time None Recorded Concern Status LastModified by Organization Details LastModified Time None Recorded Advance Directives Directive None Recorded Payers Encounter Date Sequence Insurance Name Policy Number Policy Lynne Covered Member ID Lynne Member ID Guarantor Name 09/22/2022 1 [facility] [place] [id number] Kalpana Fischer [id number] Mark Fischer Notes Date Note Type Note Provider Name and Address Organization Details Recorded Time 09/22/2022 text/html Sore throatRepor bib bypatient.[email or web address]:57 y.o male pt with h.o diabetes presents with nasal congestion, fever, cough and sore throat x 4 days. Pt denies chest pain, or SOB. Pt speaking and swallowing normal. HALLE ELMORE [address] [place], [address], PA - [facility] 09/24/2022 16:43:57
--- OUTSIDE RECORDS SUMMARY | 2024-04-23 11:28 | XMS_ITS | Clinical Summary ---
Author Organization [facility] Address [address] [place] [address] Care Team Providers Care Burn Table Operator Name Role Phone Lisa Verdugo MD Primary Care Provide r Allergies No known active allergies Medications Medication Sig Dispensed Refills Start Date End Date Status gabapentin (NEURONTIN) 600 MG tablet TAKE ONE TABLET BY MOUTH EVERY DAY 3 05/19/2017 Active glyBURIDE (DIABETA) 2.5 MG tablet TAKE ONE TABLET BY MOUTH TWICE A DAY 11 05/19/2017 Active lisinopril-hydrochloro thiazide (PRINZIDE,ZESTORETIC) tablet 10-12.5 mg Take 1 tablet by mouth daily. 3 05/19/2017 Active metFORMIN (GLUCOPHAGE) tablet 1000 mg TAKE ONE TABLET BY MOUTH TWICE A DAY 6 05/25/2017 Active naproxen (NAPROSYN) 500 MG tablet TAKE ONE TABLET BY MOUTH TWICE A DAY WITH FOOD OR MILK 2 06/12/2017 Active [place] 3 1000 MG CAPS Take 1 capsule by mouth 2 (two) times a day. 11 05/25/2017 Active Active Problems Problem Noted Date Diagnosed Date Microhematuria 06/22/2017 Family History Medical History Relation Name Comments Cancer Maternal Aunt Breast cancer Mother Constipation Mother Relation Name Status Comments Maternal Aunt Mother Social History Tobacco Use Types Packs/Day Years Used Date Smoking Tobacco: Former Smokeless Tobacco: Never Alcohol Use Standard Drinks/Week Comments Yes 0 (1 standard drink = 0.6 oz pur e alcohol) Sex and Gender Information Value Date Recorded Sex Assigned at Not on file Gender Identity Not on file Sexual Orientation Not on file Job Start Date Occupation Industry Not on file Not on file Not on file Last Filed Vital Signs Vital Sign Reading Time Taken Comments Blood Pressure 150/80 06/22/2017 1:45 PM EDT Pulse - - Temperature - - Respiratory Rate - - Oxygen Saturation - - Inhaled Oxygen Concentration - - Weight 125.6 kg (277 lb) 06/22/2017 1:45 PM EDT Height 175.3 cm (5' 9 ) 06/22/2017 1:45 PM EDT Body Mass Index 40.91 06/22/2017 1:45 PM EDT Plan of Treatment Health Maintenance Due Date Last Done Comments Hepatitis B Vaccines (1 of 3 - 3-dose series) 1965 Hepatitis C Screening 1965 COVID-19 Vaccine (#1) 1965 Depression Screening 1977 Preventative Health Evaluation 1983 DTap / Tdap / Td (1 - Tdap) 1984 Colon Cancer Screening (Colonoscopy) 2010 Shingrix-Zoster Vaccine (1 of 2) 2015 Influenza Vaccine (#1) 2023 Pneumococcal Vaccine Aged Out No long er eligible based on patient's age to complete this topic RSV Ped < 20 months Aged Out No longe r eligible based on patient's age to complete this topic Care Teams Burn Table Operator Relationship Specialty Start Date End Date Lisa Verdugo MD PCP - General Internal Medicine 06/22/17
== END 2024-04-23 11:10 | disposition home or self-care (01) ==
PROVIDERS: PCP Internal Medicine; Visit Provider Orthopaedic Surgery
DX: M65.342 Trigger finger, left ring finger (principal); R20.0 Anesthesia of skin; E11.9 Type 2 diabetes mellitus without complications
CPT/HCPCS: 99204

== ENCOUNTER → 2024-04-23 09:56 | Outpatient (BNVA) | payer OTHER, SELFPAY | PROVIDERS: PCP Internal Medicine; Visit Provider Orthopaedic Surgery | DX: M65.342 Trigger finger, left ring finger (principal); R20.0 Anesthesia of skin; E11.9 Type 2 diabetes mellitus without complications | CPT/HCPCS: 99202 ==

== ENCOUNTER 2024-06-04 10:29 | Outpatient (REF) | payer OTHER, SELFPAY ==
--- OUTSIDE RECORDS SUMMARY | 2024-06-04 12:34 | XMS_ITS | Encounter Summary ---
Author Organization [employer] Address [address] [facility] [address] [place] [address] Care Team Providers Care Concierge Manager Name Role Phone Joseph Guerrero MD Primary Care Provider [phone] Reason for Visit * Reason Comments Med Refill Encounter Details Date Type Department Care Team ([facility] Contact Info) Description 05/29/2024 Refill [facility] [address] [place] [address] Joseph Guerrero MD [address] [place] [address] Social History Tobacco Use Types Packs/Day Years [...] Encounters Date Type Department Care Team ([facility] Contact Info) Description 09/24/2024 10:00 AM EDT Office Visit [facility] [address] [place] [address] Joseph Guerrero MD [address] [place] [address] documented as of this encounter Visit Diagnoses Not on filedocumented in this encounter Additional Health Concerns Assessment Noted Time PHQ-9 Depression Total Score: 0 02/11/20 22 10:58 AM EST documented as of this encounter Care Teams Concierge Manager Relationship Specialty Start Date End Date Joseph Guerrero MD [address] [place] [address] PCP - General Internal Medicine 11/22/17 documented as of this encounter
--- OUTSIDE RECORDS SUMMARY | 2024-06-04 12:34 | XMS_ITS | Encounter Summary ---
Author Organization [employer] Address [address] [facility] 7 [place] [address] Care Team Providers Care Roller Engraver Name Role Phone Joseph Guerrero MD Primary Care Provider [phone] Reason for Visit * Reason Onset Date Comments Call Back Request 07/28/2023 Encounter Details Date Type Department Care Team (Late st Contact Info) Description 07/28/2023 Telephone [facility] [address] [place] [address] Joseph Guerrero MD [address] [place] [address] Call Back Request Social History Tobacco Use [...] written on 07/05 is already at the [facility] pharmacy. Unable to reach pt, left message for pt to call back. * Telephone Encounter - Mariely Jiménez - 07/28/2023 12:12 PM EDT Tc from pt requesting a call back, pt is requesting Trulicity 3MG to be send to [facility]. documented in this encounter Plan of Treatment Upcoming Encounters Date Type Department Care Team (Late st Contact Info) Description 09/24/2024 10:00 AM EDT Office Visit [facility] [address] [place] [address] Joseph Guerrero MD [address] [place] [address] documented as of this encounter Visit Diagnoses Not on filedocumented in this encounter Additional Health Concerns Assessment Noted Time PHQ-9 Depression Total Score: 0 02/11/20 22 10:58 AM EST documented as of this encounter Care Teams Roller Engraver Relationship Specialty Start Date End Date Joseph Guerrero MD [address] [place] [address] PCP - General Internal Medicine 11/22/17 documented as of this encounter
--- OUTSIDE RECORDS SUMMARY | 2024-06-04 12:34 | XMS_ITS | Encounter Summary ---
Author Organization [employer] Address [address] [place] [address] 7 [place] [address] Care Team Providers Care Coating Operator Name Role Phone Joseph Guerrero MD Primary Care Provider [phone] Reason for Referral * Medications - Pending Review Specialty Diagnoses / Procedures Referred By Lovely barragan Referred To Contact Diagnoses Type 2 diabetes mellitus with diabetic neuropathy, without long-term current use of insulin ([facility]) Joseph Guerrero MD [address] [place] [address] Phone: tel: fax: Referral ID Status Reason Start Date Expiration Date V isits Requested Visits Authorized [id number] Pending Review 06/04/2024 06/04/2025 1 1 * PFT (Routine) - Authorized Specialty Diagnoses / Procedures Referred By Lovely barragan Referred To Contact Diagnoses Wheezing Procedures Pulmonary Function Test Joseph Guerrero MD [address] [place] [address] Phone: tel: fax: [address] Phone: tel: fax: Referral ID Status Reason Start Date Expiration Date V isits Requested Visits Authorized [id number] Authorized 06/04/2024 06/04/2025 1 1 Reason for Visit * Reason Comments Diabetes Hypertension Encounter Details Date Type Department Care Team (Late st Contact Info) Description 06/04/2024 10:00 AM EDT Office Visit [facility] [address] [place] [address] Joseph Guerrero MD [address] [place] [address] Primary hypertension (Primary Dx); Type 2 diabetes mellitus with diabetic neuropathy, without long-term current use of insulin ([facility]); Other male erectile dysfunction; Hematuria, unspecified type; Wheezing Social History Tobacco Use Types Packs/Day Years Used Date Smoking Tobacco: Former Cigarettes 1 18 1 7 - 2004 Passive Smoke Exposure: Never Smokeless Tobacco: Former Quit: 2004 Alcohol Use Standard Drinks/Week Comments Not Currently 0 (1 standard drink = 0.6 oz pur e alcohol) Depression Answer Date Recorded Patient Health Questionnaire-9 Score 1 06/04/2024 Patient Health Questionnaire-9 Score 1 06/04/2024 Last PHQ-9: Questionnaire Data Not on file 0 06/04/2024 Housing Stability Answer Date Recorded What is your housing situation today? I have nishant jones 06/04/[address] you li ve. Do you have problems with any of the following? None of the above 06/04/2024 Food Insecurity Answer Date Recorded Within the past 12 months, y ou worried that your food would run out before you got money to buy more: Never True 06/04/2024 Within the past 12 months,th e food you bought just didn't last and you didn't have enough money to get more: Never True 09/2024 Transportation Answer Date Recorded In the past 12 months, has l ack of transportation kept you from medical appts, meetings, work or from getting things needed for daily living? No 06/04/2024 Utilities Answer Date Recorded In the past 12 months, has t he electric, gas, oil or water company threatened to shut off services in your home? No 06/04/2024 Depression Answer Date Recorded Patient Health Questionnaire-2 Score 0 06/04/2024 Internet Access Answer Date Recorded Internet Access Q1 Yes 06/04/2024 Internet Access Q2 Not on file 06/04/2024 Sex and Gender Information Value Date Recorded Sex Assigned at Male 12/27/2021 10:34 AM EDT Legal Sex Male 10:34 AM EDT Gender Identity Male 12/27/2021 10:34 AM EDT Sexual Orientation Straight 06/03/2022 10 :16 AM EDT documented as of this encounter Last Filed Vital Signs Vital Sign Reading Time Taken Comments Blood Pressure 137/84 06/04/2024 10:08 AM EDT Pulse 87 06/04/2024 10:08 AM EDT Temperature 36.7 ??C (98 ??F) 06/04/2024 10:08 AM EDT Respiratory Rate 20 06/04/2024 10:08 AM EDT Oxygen Saturation 98% 06/04/2024 10:08 AM EDT Inhaled Oxygen Concentration - - Weight 122 kg (268 lb) 06/04/2024 10:08 AM EDT Height 175.3 cm (5' 9 ) 06/04/2024 10:08 AM EDT Body Mass Index 39.58 06/04/2024 10:08 AM EDT documented in this encounter Progress Notes * Joseph Guerrero MD - 06/04/2024 10:00 AM EDT Subjective Patient ID: Mark Fischer is a 59 y.o. male who presents for Diabetes and Hypertension. Diabetes He presents for his follow-up diabetic visit. He has type 2 diabetes mellitus. Pertinent negatives for hypoglycemia include no confusion, dizziness, headaches, hunger, mood changes, nervousness/anxiousness, pallor, seizures, sleepiness, speech difficulty, sweats or tremors. Pertinent negatives for diabetes include no blurred vision, no chest pain, no fatigue, no foot paresthesias, no foot ulcerations, no polydipsia, no polyphagia, no polyuria, no visual change, no weakness and no weight loss. Symptoms are stable. Hypertension This is a chronic problem. The problem is controlled. Pertinent negatives include no anxiety, blurred vision, chest pain, headaches, malaise/fatigue, neck pain, orthopnea, palpitations, peripheral edema, PND or sweats. Pt is doing well: 1) h/o difficulty falling back to sleep when he wakes up at around 3 AM to urinate. Melatonin is helpful. 2) h/o wheezing at night. Not interfering w/ sleep. Review of Systems Constitutional: Negative for activity change, appetite change, chills, diaphoresis, fatigue, malaise/fatigue and weight loss. HENT: Negative for dental problem, drooling and ear discharge. Eyes: Negative for blurred vision, pain and itching. Respiratory: Negative for cough, choking and chest tightness. Cardiovascular: Negative for chest pain, palpitations, orthopnea, leg swelling and PND. Gastrointestinal: Negative for abdominal pain, anal bleeding and blood in stool. Endocrine: Negative for cold intolerance, heat intolerance, polydipsia, polyphagia and polyuria. Genitourinary: Negative for flank pain, frequency and genital sores. Musculoskeletal: Negative for back pain and neck pain. Skin: Negative for pallor. Neurological: Negative for dizziness, tremors, seizures, speech difficulty, weakness, light-headedness, numbness and headaches. Psychiatric/Behavioral: Negative for agitation, confusion and decreased concentration. The patient is not nervous/anxious. Objective BP 137/84 (BP Location: Left arm, Patient Position: Sitting, BP Cuff Size: Adult long) Pulse 87 Temp 98 ??F (36.7 ??C) (Oral) Resp 20 Ht 5' 9 (1.753 m) Wt 268 lb (122 kg) SpO2 98% BMI 39.58 kg/m?? Physical Exam Constitutional: General: He is not in acute distress. Appearance: Normal appearance. He is obese. He is not ill-appearing, toxic- appearing or diaphoretic. Cardiovascular: Rate and Rhythm: Normal rate. Pulses: Normal pulses. Pulmonary: Effort: Pulmonary effort is normal. Abdominal: Palpations: Abdomen is soft. Neurological: General: No focal deficit present. Mental Status: He is alert. Assessment/Plan Diagnoses and all orders for this visit: Primary hypertension Comments: Controlled No change DASH diet Orders: - CBC auto differential; Future - Comprehensive Metabolic Panel; Future - Lipid Panel, Standard; Future - TSH W/Reflex to FT4; Future - Hepatitis C Antibody with Reflex to HCV, RNA, Quantitative, Real-Time PCR; Future Type 2 diabetes mellitus with diabetic neuropathy, without long-term current use of insulin (CMS/HCC) Comments: Stable trulicity will be changed to Ozempic to help patient loose weight. Orders: - POCT Glucose - Albumin, Random Urine W/Creatinine; Future - CBC auto differential; Future - Comprehensive Metabolic Panel; Future - Lipid Panel, Standard; Future - TSH W/Reflex to FT4; Future - Hepatitis C Antibody with Reflex to HCV, RNA, Quantitative, Real-Time PCR; Future - semaglutide (Ozempic, 1 MG/DOSE,) 4 MG/3ML solution pen-injector; Inject 1 mg under the skin 1 (one) time per week. Other male erectile dysfunction Comments: No complaint in that regard today. Viagra is helpful Hematuria, unspecified type Comments: No gross hematuria the symptom have resolved. Wheezing - Pulmonary Function Test; Future Albuterol as needed Further management will depend on the results of the PFT w/ a methacholine challenge test. documented in this encounter Plan of Treatment Upcoming Encounters Date Type Department Care Team (Late st Contact Info) Description 09/24/2024 10:00 AM EDT Office Visit [facility] MED & PEDS [address] [place] [address] Joseph Guerrero MD [address] [place] [address] Scheduled Orders Name Type Priority Associated Diagnoses Orde r Schedule Albumin, Random Urine W/Creatinine Lab Routine Type 2 diabetes mellitus with diabetic neuropathy, without long-term current use of insulin ([facility]) Expected: 06/04/2024 (Approximate), Expires: 06/04/2025 CBC auto differential Lab Routine Primary hypertension Type 2 diabetes mellitus with diabetic neuropathy, without long-term current use of insulin (CMS/HCC) Expected: 06/04/2024 (Approximate), Expires: 06/04/2025 Comprehensive Metabolic Panel Lab Routine Primary hypertension Type 2 diabetes mellitus with diabetic neuropathy, without long-term current use of insulin (CMS/HCC) Expected: 06/04/2024 (Approximate), Expires: 06/04/2025 Lipid Panel, Standard Lab Routine Primary hypertension Type 2 diabetes mellitus with diabetic neuropathy, without long-term current use of insulin (CMS/HCC) Expected: 06/04/2024 (Approximate), Expires: 06/04/2025 TSH W/Reflex to FT4 Lab Routine Primary hypertension Type 2 diabetes mellitus with diabetic neuropathy, without long-term current use of insulin ([facility]) Expected: 06/04/2024 (Approximate), Expires: 06/04/2025 Hepatitis C Antibody with Reflex to HCV, RNA, Quantitative, Real-Time PCR Lab Routine Primary hypertension Type 2 diabetes mellitus with diabetic neuropathy, without long-term current use of insulin ([facility]) Expected: 06/04/2024, Expires: 06/04/2025 Pulmonary Function Test PFT Routine Wheezing Expected: 06/04/2024, Expires: 12/04/2024 documented as of this encounter Procedures Procedure Name Priority Date/Time Associated Diagnosis Comments POCT GLUCOSE Routine 06/04/2024 10:20 AM EDT Type 2 diabetes mellitus with diabetic neuropathy, without long-term current use of insulin ([facility]) documented in this encounter Results * (ABNORMAL) POCT Glucose (06/04/2024 10:20 AM EDT) [facility] Glucose Blood, POC 205(A) 60 - 200 mg/dL QC Media Lot # [id number] Comment:RANDOM Lot# Expiration Date 815, Blood Capillary blood specimen / Unknown 06/04/2024 10:20 AM EDT Joseph Guerrero MD POINT OF CARE TEST ENTER/ED IT ORDERABLES Final Result documented in this encounter Visit Diagnoses Diagnosis Primary hypertension- Primary Unspecified essential hypertension Type 2 diabetes mellitus with diabetic neuropathy, without long-term current use of insulin ([facility]) Other male erectile dysfunction Hematuria, unspecified type Wheezing documented in this encounter Additional Health Concerns Assessment Noted Time PHQ-9 Depression Total Score: 1 06/05/19 25 10:30 AM EDT documented as of this encounter Care Teams Coating Operator Relationship Specialty Start Date End Date Joseph Guerrero MD [address] [place] [address] PCP - General Internal Medicine 11/22/17 documented as of this encounter
--- OUTSIDE RECORDS SUMMARY | 2024-06-04 12:34 | XMS_ITS | Encounter Summary ---
Author Organization [employer] Address [address] [place] [address] Care Team Providers Care Hot Box Checker Name Role Phone Joseph Guerrero MD Primary Care Provider [phone] Encounter Details Date Type Department Care Team (Latest Contact Info) Description 06/04/2024 Travel Social History Tobacco Use Types Packs/Day Years Used Date Smoking Tobacco: Former Cigarettes 1 1 7 - 2004 Passive Smoke Exposure: [...] Description 09/24/2024 10:00 AM EDT Office Visit [facility] [address] [place] [address] Joseph Guerrero MD [address] [place] [address] documented as of this encounter Visit Diagnoses Not on filedocumented in this encounter Additional Health Concerns Assessment Noted Time PHQ-9 Depression Total Score: 1 06/05/19 25 10:30 AM EDT documented as of this encounter Care Teams Hot Box Checker Relationship Specialty Start Date End Date Joseph Guerrero MD [address] [place] [address] PCP - General Internal Medicine 11/22/17 documented as of this encounter
--- OUTSIDE RECORDS SUMMARY | 2024-06-04 12:34 | XMS_ITS | Encounter Summary ---
Author Organization [employer] Address [address] [place] [address] Care Team Providers Care Metals Analyst Name Role Phone Joseph Guerrero MD Primary Care Provider [phone] Reason for Visit * Reason Onset Date Comments Insurance 06/03/2024 Encounter Details Date Type Department Care Team ([facility] st Contact Info) Description 06/03/2024 Telephone [facility] [address] [place], [place] [phone] Joseph Guerrero MD [address] [place] [address] Insurance Social History Tobacco Use Types Packs/Day Years [...] encounter Miscellaneous Notes * Telephone Encounter - Hemalatha Romano - 06/03/2024 1:15 PM EDT Outgoing lvm informing pt insurance is inactive. If pt returns call please akeni me. Pt does have ascheduled appointment tomorrow with PCP on 06/04/24. documented in this encounter Plan of Treatment Upcoming Encounters Date Type Department Care Team (Late st Contact Info) Description 09/24/2024 10:00 AM EDT Office Visit [facility] [address] [place] [address] Joseph Guerrero MD [address] [place] [address] documented as of this encounter Visit Diagnoses Not on filedocumented in this encounter Additional Health Concerns Assessment Noted Time PHQ-9 Depression Total Score: 0 02/11/20 22 10:58 AM EST documented as of this encounter Care Teams Metals Analyst Relationship Specialty Start Date End Date Joseph Guerrero MD [address] [place] [address] PCP - General Internal Medicine 11/22/17 documented as of this encounter
--- OUTSIDE RECORDS SUMMARY | 2024-06-04 12:34 | XMS_ITS | Encounter Summary ---
Author Organization [facility] Address [address] [place] [address] 7 [place] [address] Care Team Providers Care Plant Buyer Name Role Phone Joseph Guerrero MD Primary Care Provider [phone] Encounter Details Date Type Department Care Team (Late st Contact Info) Description 11/20/2023 Orders Only [facility] MED & PEDS [address] [place], [place] [phone] ProviderAdam MD Social History Tobacco Use Types [...] Description 09/24/2024 10:00 AM EDT Office Visit [facility] MED & PEDS [address] [place], [place] [phone] Joseph Guerrero MD [address] [place] [address] documented as of this encounter Procedures Procedure [...] documented as of this encounter Care Teams Plant Buyer Relationship Specialty Start Date End Date Joseph Guerrero MD [address] [place] [address] PCP - General Internal Medicine 11/22/17 documented as of this encounter
--- OUTSIDE RECORDS SUMMARY | 2024-06-04 12:35 | XMS_ITS | Encounter Summary ---
Author Organization [employer] Address [address] [place] [address] 7 [place] [address] Care Team Providers Care Dispersion Mixer Name Role Phone Joseph Guerrero MD Primary Care Provider [phone] Encounter Details Date Type Department Care Team ([facility] Contact Info) Description 05/26/2023 Orders Only [facility] MED & PEDS [address] [place], [place] [phone] Joseph Guerrero MD [address] [place], [place] [phone] Social History Tobacco Use Types Packs/Day Years [...] Upcoming Encounters Date Type Department Care Team ([facility] Contact Info) Description 09/24/2024 10:00 AM EDT Office Visit [facility]S [address] [place], [place] [phone] Joseph Guerrero MD [address] [place] [address] documented as of this encounter Visit Diagnoses Not on filedocumented in this encounter Additional Health Concerns Assessment Noted Time PHQ-9 Depression Total Score: 0 02/11/20 22 10:58 AM EST documented as of this encounter Care Teams Dispersion Mixer Relationship Specialty Start Date End Date Joseph Guerrero MD [address] [place] [address] PCP - General Internal Medicine 11/22/17 documented as of this encounter
--- OUTSIDE RECORDS SUMMARY | 2024-06-04 12:35 | XMS_ITS | Clinical Summary ---
Author Organization [facility] Address [address] [place] [address] Care Team Providers Care Display Fabrication Supervisor Name Role Phone Lisa Verdugo MD Primary [...] WITH FOOD OR MILK 2 06/12/2017 Active Denio 3 1000 MG CAPS Take 1 capsule [...] age to complete this topic Care Teams Display Fabrication Supervisor Relationship Specialty Start Date End Date Lisa Verdugo MD PCP - General Internal Medicine 06/22/17
--- OUTSIDE RECORDS SUMMARY | 2024-06-04 12:35 | XMS_ITS | Data Portability ---
Author Organization [facility], [address] Address [address] [place] [address] Assessment No assessment recorded. Plan of Treatment Reminders Order Date Submit Date Provider Last Modified By Organization Details Last Modified Time Details Appointments None recorded. Lab streptococc us group A, culture, throat 2022 023 [place] [facility] ([facility], [address] [place] [address], [place], [address], 3 08:06:51 SARS CoV 2 (COVID-19) Ag, QL, IA, upper respiratory specimen 2022 023 [facility], [address] [place], [address], 3 08:58:10 rapid strep group A, throat 2022 023 [email or web address] [facility], [address] [place], [address], 3 08:51:23 rapid flu (A+B) 2022 023 [facility], [address] [place], [address], 3 08:57:01 Referral None recorded. Procedures None recorded. Surgeries None recorded. Imaging XR, chest, 2 view 2022 023 [email or web address] [facility], [address] [place] [address], [place], [address], 10:34:17 Medication Orders doxycycline hyclate 100 mg capsule 2022 023 [facility], [address] [place] [address], [id number], 3 12:58:50 ProAir HFA 90 mcg/actuati on aerosol inhaler 2022 023 [facility], [address] [place], [place], [id number], 3 13:48:22 benzonatate 100 mg capsule 2022 023 [facility], [address] [place] [address], [id number], 12:58:50 Patient TargetsNo targets recorded. Patient Instructions Encounter Date Encounter Id Patient Instructions Last Modified By Organization Details Last Modified Time 09/22/2022 [id number] sore throat: car e instructions [email or web address] Not available 09/22/2022 08:50:22 Based on clinica [...] Pain 3. Wheezing 4. Coughing up Blood Not available 09/24/2022 16:37:53 Assessment: Community-acquire d [...] patient is in agreement with the plan. [email or web address] Not available 09/24/2022 16:43:35 Reason for Referral None Reported. Results Created Date Observation Date Name Description Value Unit Range Abnormal Flag Note LastModifiedBy Organization Detail LastModifiedTime 09/23/1909/25/2022 BETA STREP GP A CULTU RE beta strep gp A culture NEGATI VE Refer ence Range : Negat thai Not Available [facility] ([facility]) [address] [facility], [place], [address], 09/25/2022 08:06:51 09/23/1909/22/2022 SARS CoV 2 (COVI D-19) Ag, QL, IA, upper respi rator y speci men Unknown Analyte negati ve Not Available [address] [place], [address], 09/22/2022 08:47:51 09/23/1909/22/2022 rapid flu (A+B) Unknown Analyte negati ve Not Available [address] [place], [address], 09/22/2022 08:48:07 09/23/1909/22/2022 rapid flu (A+B) Unknown Analyte negati ve Not Available [address] [place], [address], 09/22/2022 08:48:07 09/23/1909/22/2022 rapid strep group A, throa t Unknown Analyte negati ve Not Available [address] [place], [address], 09/22/2022 08:47:58 09/23/19 23 09/22/2022 rapid strep group A, throa t Unknown Analyte Negati ve Not Available [address] [address] [place], [address], 09/22/2022 08:47:58 09/23/19 23 09/22/2022 rapid strep group A, throa t Unknown Analyte yes Not Available [address] [place], [address], 09/22/2022 08:47:58 09/23/19 23 09/22/2022 XR, chest , 2 view No observ ation record ed. [facility] [address] [facility] [place], [address], 09/22/2022 16:15:30 Result Notes None recorded. Problems Name Problem SNOMED Code Status Onset Date Resolution Date Notes Provider Name and Address Organization Details Recorded Time Diabetes mellitus 71756487 Active 2022 Esme Hays null, [place] - [facility] 3 08:39:01 Hyperlipidemia 51615480 Active 2022 Esme Hays null, [place] - [facility] 3 08:39:07 Hypertensive disorder 11716409 Active 2022 Esme Hays null, [place] - [...] Time 09/22/2022 XR, chest, 2 view completed [email or web address] [facility] [address] [place], [address], 09/22/2022 16:15:30 Procedure Notes None recorded. Medical [...] Updated DateTime 3 175.26 cm 37.7 kg/m2 100153. 05 g 6 98 [degF] 18 /min [...] SNOMED-CT Code Diagnosis ICD10 Code Diagnosis Note [id number] [address] [place] [address] 07/27/2016 14:55:19 07/27/2016 15:28:56 [id number] [address] [place] [address] 08/05/2016 13:25:45 08/05/2016 13:56:06 [id number] [place] [address] 07/29/2016 14:56:16 07/29/2016 15:33:02 [id number] [address] [place] [address] 07/26/2016 15:11:17 07/26/2016 15:58:59 [id number] [facility]G [address] [facility] [address] [place] [address] 09/22/2022 08:04:04 09/22/2022 10:34:17 Acute bronchitis 60631883 J20.9 Acute pharyngitis 326099 003 J02.9 Community acquired pneumonia 064455846 J18.9 Health Concerns Section Related Observation LastModified by Organization Detai ls LastModified Time None Recorded Concern Status LastModified by Organization Details LastModified Time None Recorded Advance Directives Directive None Recorded Payers Encounter Date Sequence Insurance Name Policy Number Policy Lynne Covered Member ID Lynne Member ID Guarantor Name 09/22/2022 1 [facility] (O) [id number] Kalpana Fischer [id number] 1 [id number] Mark Fischer Notes Date Note Type Note Provider Name and Address Organization Details Recorded Time 09/22/2022 text/html Sore throatRepor bib bypatient.Notes:57 y.o male pt with h.o diabetes presents with nasal congestion, fever, cough and sore throat x 4 days. Pt denies chest pain, or SOB. Pt speaking and swallowing normal. HALLE ELMROE [address] [place], [address], [place] - [facility] 09/24/2022 16:43:57
--- OUTSIDE RECORDS SUMMARY | 2024-06-04 12:35 | XMS_ITS | Clinical Summary ---
Author Organization [employer] Address [address] [facility] 7[address] [place] [address] Care Team Providers Care Director Meetings Name Role Phone Joseph Guerrero MD Primary Care Provider [phone] Allergies No known active allergies Medications diclofenac (Cataflam) 50 MG tablet take 1 tablet by oral route 3 times every day 09/14/19 22 Active HYDROcodone-ac etaminophen ([place]) 5-325 MG tablet take 1 tablet by oral route every 4 - 6 hours as needed for pain 10/17/19 21 Active metFORMIN (Glucophage) 500 MG tablet take 1 tablet by oral route 2 times every day with morning and evening meals 02/17/20 21 Active Blood Pressure Monitoring (Comfort Touch BP Cuff/Medium) mis Active tamsulosin (Flomax) 0.4 MG 24 hr capsuleIndicat ions:Kidney stone TAKE ONE CAPSULE DAILY 30 MINUTES FOLLOWING THE SAME MEAL EACH DAY 28 capsule 05/25/19 23 Active diphenhydrAMIN E (BENADryl) 25 MG tabletIndicati ons:Adjustment insomnia Take 1 tablet (25 mg) by mouth if needed at bedtime for sleep. 2 tabs at bedtime 30 tablet 10/13/19 23 Active famotidine (Pepcid) 20 MG tabletIndicati ons:Post-nasal drip Take 1 tablet (20 mg) by mouth Once per day. 30 tablet 1 06/21/19 24 025 Active pseudoephedrin e (Sudafed) 30 MG tabletIndicati ons:Other cough Take 1 tablet (30 mg) by mouth every 4 (four) hours if needed for congestion for up to 10 days. 30 tablet 06/21/19 24 Active albuterol 108 (90 Base) MCG/ACT inhalerIndicat ions:Other cough Inhale 2 puffs every 4 (four) hours if needed for wheezing. 18 g 06/21/19 24 025 Active Diclofenac Sodium 1 % gelIndications :Arthritis of left shoulder region To apply to the affected area 3 times a day 100 g 06/21/19 24 Active Viagra 50 MG tabletIndicati ons:Other male erectile dysfunction TAKE 1 TABLET 1 HOUR BEFORE SEXUAL RELATIONS ONCE DAILY NEEDED. 8 tablet 5 01/04/20 24 Active losartan-hydro CHLOROthiazide (Hyzaar) 50-12.5 MG tabletIndicati ons:Primary hypertension,W heezing Take 1 tablet by mouth Once per day. 30 tablet 03/05/19 25 026 Active melatonin 5 MG tablet TAKE ONE TABLET AT BEDTIME 30 tablet 3 03/16/19 25 Active gabapentin (Neurontin) 800 MG tablet Take 1 tablet (800 mg) by mouth 3 times daily. 90 tablet 2 05/09/19 25 Active atorvastatin (Lipitor) 20 MG tablet TAKE ONE TABLET BY MOUTH EVERY DAY 90 tablet 1 05/31/19 25 Active semaglutide (Ozempic, 1 MG/DOSE,) 4 MG/3ML solution pen-injectorIn dications:Type 2 diabetes mellitus with diabetic neuropathy, without long-term current use of insulin ([facility]) Inject 1 mg under the skin 1 (one) time per week. 1 each 06/05/19 25 Active atorvastatin (Lipitor) 20 MG tablet TAKE ONE TABLET BY MOUTH EVERY DAY 90 tablet 1 05/26/19 24 025 Discontinued dulaglutide (Trulicity) 4.5 MG/0.5ML solution pen-injectorIn dications:Type 2 diabetes mellitus with diabetic neuropathy, without long-term current use of insulin (CMS/HCC),Obes ity (BMI 30-39.9) Inject 4.5 mg under the skin 1 (one) time per week. 4 each 07/06/19 24 025 Discontinued(Th erapy completed) gabapentin (Neurontin) 800 MG tablet TAKE ONE TABLET BY MOUTH THREE TIMES DAILY 90 tablet 2 08/30/19 24 025 Discontinued(Re order (will not trigger notification to Pharmacy)) Active Problems Problem Noted Date Diagnosed Date [...] Encounters Date Type Department Care Team Description 06/04/2024 10:00 AM EDT Office Visit [facility] [address] [place] [address] Joseph Guerrero MD Primary hypertension (Primary Dx); Type 2 diabetes mellitus with diabetic neuropathy, without long-term current use of insulin ([facility]); Other male erectile dysfunction; Hematuria, unspecified type; Wheezing 06/04/2024 Travel 06/03/2024 Telephone [facility] [address] [place] [address] Joseph Guerrero MD Insurance 05/29/2024 Refill [facility] [address] [place] [address] Joseph Guerrero MD 05/08/2024 Refill [facility] [address] [facility] [place] [address]Suze Hendricks [phone] Wu MD 03/15/2024 Refill [facility] [address] [place] [address] Joseph Guerrero MD 03/06/2024 Travel from Last 3 Months Immunizations Name Administration [...] Mass Index 39.58 06/04/2024 10:08 AM EDT Plan of Treatment Upcoming Encounters Date Type Department Care Team (Late st Contact Info) Description 09/24/2024 10:00 AM EDT Office Visit [facility] [address] [place] [address] Joseph Guerrero MD [address] [place] [address] Health Maintenance Due Date Last Done Comments CT Colonography 1965 Dental Oral Exam 1965 Dental Prophylaxis 1965 FIT DNA/Cologuard 1965 FIT 1965 FOBT 1965 HIV Screening 1965 Sigmoidoscopy 1965 Hepatitis C Screening 1983 Hepatitis B Vaccines (1 of 3 - 19+ 3-dose series) 1984 Zoster Vaccines (2 of 2) 02/05/2020 12/11/2019 Diabetes: Urine Protein Screening 12/02/2020 12/03/2019 Pneumococcal Vaccine: 50+ Years (2 of 2 - PCV) 12/10/2020 12/11/2019 Lipid Panel 04/22/2022 04/22/2021, 12/03/2019 Dental X-Ray: Bitewings 06/05/2023 06/03/2022 Influenza Vaccine (#1) 2023 2, 02/05/2021, 12/11/2019 Diabetes: Hemoglobin A1C 09/02/2024 025, 06/21/2023, 03/06/2023, Additional history exists Alcohol/Substance Use Screening 06/04/2025 06/04/2024 Dental X-Ray: Full Mouth 06/04/2025 06/03/2022 Depression Screening 06/04/2025 06/04/2024, 06/05/19 Diabetes: Foot Exam 06/04/2025 06/04/2024, 10/12/2022, 10/12/2022, Additional history exists SDOH Screening 06/04/2025 06/04/2024 Tobacco Screening 06/04/2025 06/04/2024 Eye Exam 09/27/2025 09/28/2023, 02/2023, 09/28/2023, Additional history exists DTaP/Tdap/Td Vaccines [...] neuropathy, without long-term current use of insulin ([facility]) XR CHEST 2 VIEWS Routine 03/18/2024 3:21 PM EST Wheezing POCT GLYCATED HEMOGLOBIN, TOTAL Routine 03/05/2024 4:05 PM EST Type 2 diabetes mellitus with diabetic neuropathy, without long-term current use of insulin ([facility]) HM COLONOSCOPY Routine 11/20/2023 4:06 PM EDT INTRAORAL - COMPLETE SERIES OF RADIOGRAPHIC IMAGES Routine 06/03/2022 10:00 AM EDT LIPID PANEL, STANDARD Routine 04/22/2021 8:31 AM EST ALBUMIN, RANDOM URINE W/CREATININE Routine 12/03/2019 8:24 AM EDT from Last 3 Months or Most Recently Relevant to Health Maintenance Results * (ABNORMAL) POCT Glucose (06/04/2024 10:20 AM EDT) Glucose Blood, POC 205(A) 60 - 200 mg/dL QC Media Lot # [id number] Comment:RANDOM Lot# Expiration Date [id number] Blood Capillary blood specimen / Unknown 06/04/2024 10:20 AM EDT us Joseph Guerrero MD POINT OF CARE TEST ENTER/ED IT ORDERABLES Final Result * XR Chest 2 Views (03/18/2024 3:21 PM EST) Anatomical Region Laterality Modality Chest Radiographic Eveline ging 03/18/2024 3:21 PM EST Narrative 03/18/2024 4:07 PM EST ? [facility] ?[address] ? [place] [address] ?XRay Report ? Signed ? Patient: Amado,Mark ?MR#: [id number] ? : 1965 ?Acct:[id number] ? Age/Sex: 58 / M ?ADM Date: 01/20/25 ? Loc: HO.HMGCX ? Attending Dr: Joseph Guerrero MD ? Ordering Physician: Joseph Guerrero MD ?? Date of Service: 03/18/24 ?? Procedure(s): XR chest 2V ?? Accession Number(s): [id number] ? cc: Joseph Guerrero MD ? EXAMINATION: [...] 04:04 PM EST RP ? Dictated By: ?Rocco Fan MD ? Signed By: ?<Electronically signed by Rocco Fan MD in OV> ?03/18/24 1604 ? DD/ 1521 ? TD/TT: 03/18/24 1525 ? Materials Research Engineer: MSM ? Procedure Note Donotleslieter, Image - 03/18/2024 [facility] [address] [place] [address] [place] [address] XRay Report Signed Patient: Mark FischerMR#: [id number] : 1965Acct:[id number] Age/Sex: 58 / MADM Date: 03/18/24 Loc: HO.HMGCX Attending Dr: Joseph Guerrero MD Ordering Physician: Joseph Guerrero MD Date of Service: 03/18/24 Procedure(s): XR chest 2V Accession Number(s): [id number] cc: Joseph Guerrero MD EXAMINATION: XR CHEST CLINICAL INFORMATION: wheezing x 1 year COMPARISON: None available. TECHNIQUE: 2 views of the chest were obtained. FINDINGS: No significant abnormality is noted involving the heart, lungs, mediastinum, bony thorax or soft tissues. XR/XR chest 2V IMPRESSION: Unremarkable chest examination. Electronically signed by: Rocco Fan MD 03/18/2024 04:04 PM [facility] Dictated By: Rocco Fan MD Signed By: <Electronically signed by Rocco Fan MD in OV> 03/18/24 1604 DD/ 1521 TD/TT: 03/18/24 1525 Materials Research Engineer: FANNY us Joseph Guerrero MD IMG XR PROCEDURES Final Res ult * (ABNORMAL) POCT HGB A1C (03/05/2024 4:05 PM EST) Hemoglobin A1C 6.5(A) 4.0 - 6.0 % QC Media Lot # [id number] Comment:RANDOM Lot# Expiration Date [id number] Blood 03/05/2024 4:05 PM EST us Joseph Guerrero MD POINT OF CARE TEST [...] ?? Matt RAMIREZ et al. MARBIN. 2013;310(19): 3057-2707 ?? (http://education.Biosensia/faq/PZL981) Non-HDL Cholesterol 104 <130 mg/dL (calc) [facility] Comment: For patients with diabetes plus 1 major ASCVD risk ?? factor, treating to a non-HDL-C goal of <100 mg/dL ?? (LDL-C of <70 mg/dL) is considered a therapeutic ?? option. Triglycerides 178(H) <150 mg/dL [facility] 04/22/2021 8:31 AM EST us Joseph Guerrero MD LAB BLOOD ORDERABLES Final Result Performing Organization Address [facility] de Phone Number [facility] [address] * ALBUMIN, RANDOM URINE W/CREATININE (12/03/2019 8:24 AM EDT) Microalbumin Urine 4.2 See Note: mg/dL [facility] Comment: Reference Range: ?? Reference [...] URINE ORDERABLES Final Result Performing Organization Address [facility] de Phone Number [facility] [address] from Last 3 Months or Most Recently Relevant to Health [place] [address] [facility] Care Teams Director Meetings Relationship Specialty Start Date End Date Joseph Guerrero MD [address] [place] [phone] PCP - General Internal Medicine 11/22/17
[2024-06-04 14:09] LABS: MANUAL DIFF FLAG NO
[2024-06-04 14:15] LABS: Basophils Percent Auto 0.7 % (0-2); Eosinophils Absolute Auto 0.3 X10*3/uL (0.0-0.4); Eosinophils Percent Auto 5.9 % (0-4); Hematocrit 45.5 % (42.0-52.0); Hemoglobin 15.7 g/dl (14.0-18.0); Imm Gran Abs Auto 0.02 X10*3/uL (0.00-0.03); Imm Gran Pct Auto 0.5 % (0.0-0.4); Mean Corpuscular HGB Conc 34.5 g/dl (31.0-36.0); Mean Corpuscular Hemoglobin 29.2 pg (27.0-33.0); Mean Corpuscular Volume 84.7 fL (80.0-98.0); Mean Platelet Volume 9.1 fL (9.4-12.4); Monocytes Absolute Auto 0.4 X10*3/uL (0.1-1.2); Monocytes Percent Auto 10.4 % (2-11); Neutrophils Absolute Auto 1.6 x10*3/uL (2.0-8.3); Neutrophils Percent Auto 36.5 % (45-73); Platelet Count 213 X10*3/uL (160-400); Red Blood Count 5.37 X10*6/uL (4.60-5.80); Red Cell Distribution Width 13.7 % (11.0-16.0); White Blood Count 4.2 X10*3/uL (4.8-10.8)
[2024-06-04 14:35] LABS: Creatinine Urine 150.24 mg/dL; Microalbum/Creatinine Ratio Ur 221.6 ug/mg cr (<30)
[2024-06-04 14:58] LABS: Alanine Aminotransferase 45 U/L (0-40); Anion Gap 9 (12-20); Aspartate Amino Transferase 30 U/L (5-37); Bilirubin Total 0.4 mg/dL (0.0-1.0); Blood Urea Nitrogen 14 mg/dL (9-16); Calcium 9.1 mg/dL (8.4-10.2); Carbon Dioxide 27 mmol/L (22-29); Chloride 107 mmol/L (96-108); Cholesterol 128 mg/dL (<200); Estimated Glomerular Filt Rate > 60; Glucose Random 152 mg/dL (60-115); HDL Cholesterol 46 mg/dL (>40); LDL Cholesterol Calculated 56 mg/dL (<100); Potassium 3.7 mmol/L (3.3-5.1); Sodium 139 mmol/L (135-145); Total Protein 7.2 g/dL (6.5-8.0); Triglycerides 130 mg/dL (<150)
[2024-06-04 15:23] LABS: TSH reflex Free T4 0.71 uIU/mL (0.32-4.0)
[2024-06-04 16:45] LABS: Alkaline Phosphatase 59 U/L (39-117)
[2024-06-05 04:44] LABS: ~Hepatitis C Antibody Nonreactive (Nonreactive)
== END 2024-06-04 10:30 | disposition home or self-care (01) ==
LOC: HO.CHCLDS 10:29
PROVIDERS: Visit Provider Internal Medicine
DX: I10 Essential (primary) hypertension (principal); E11.40 Type 2 diabetes mellitus with diabetic neuropathy, unspecified
CPT/HCPCS: 36415; 80053; 80061; 82043; 82570; 84443; 85025; 86803

== ENCOUNTER 2024-07-13 10:51 | Emergency (ER) | payer OTHER, SELFPAY ==
[2024-07-13 11:07] VITALS: BP 131/61; PULSE 86; RESP 18; TEMP 36.3; O2SAT 96; BMI 40.1
--- NOTE | 2024-07-13 12:04 | ED.EAR ---
HPI - Ear Problem General Chief complaint: Ear Problems Stated complaint: Pain/bleeding L ear Time Seen by Provider: 07/13/24 12:03 Source: patient Mode of arrival: ambulatory Limitations: no limitations History of Present Illness ED Provider: Romelia Yanez APRN HPI Narrative: 59 yo male here with left ear pain x 2 weeks. Has had sneezing, nasal congestion, rhinorrhea and started taking zrytec daily. Noticed some bleeding when cleaning the ear today. No hearing change. Related Data Home Medications ?Medication ?Instructions ?Recorded ?Confirmed atorvastatin 20 mg tablet 20 mg PO DAILY 05/13/22 08/03/22 gabapentin 800 mg tablet 800 mg PO TID 05/13/22 08/03/22 sildenafil 50 mg tablet (Viagra) 50 mg PO DAILY PRN 05/13/22 08/03/22 albuterol sulfate 90 mcg/actuation inhalation 04/23/24 aerosol inhaler (Ventolin HFA) dulaglutide 4.5 mg/0.5 mL mg subcut 04/23/24 subcutaneous pen injector (Trulicity) losartan 50 mg-hydrochlorothiazide tab PO DAILY 04/23/24 12.5 mg tablet melatonin 5 mg tablet 5 mg PO BEDTIME 04/23/24 Previous Rx's ?Medication ?Instructions ?Recorded pyridoxine (vitamin B6) 100 mg 100 mg PO DAILY 90 days #90 tabs 06/27/22 tablet naproxen 500 mg tablet 500 mg PO BID PRN pain 7 days #14 08/17/22 tabs triamcinolone acetonide 55 mcg 2 spray intranasal DAILY #16.9 mL 07/13/24 nasal spray aerosol (Nasacort Allergy) Allergies Allergy/AdvReac Type Severity Reaction Status Date / Time No Known Allergies Allergy Verified 07/13/24 11:08 Review of Systems Review of Systems: Yes all other systems are reviewed and are negative Constitutional: Constitutional: Reports no additional constitutional complaints, Denies body ache(s), Denies chills, Denies fever(s), Denies headache(s) and Denies weakness Eyes: Eyes: Reports no additional eye complaints and Denies change in vision ENT: Reports system reviewed and no additional complaints, except as documented, Denies dizziness, Reports otalgia, Denies headache(s), Reports nasal congestion, Reports nasal discharge, Denies neck pain and Denies tinnitus Cardiovascular: Cardiovascular: Reports no additional cardiovascular complaints, Denies chest pain, Denies leg edema and Denies dyspnea Respiratory: Respiratory: Reports no additional respiratory complaints, Denies cough and Denies dyspnea Gastrointestinal: Gastrointestinal: Reports no additional gastrointestinal complaints, Denies abdominal pain, Denies diarrhea, Denies nausea and Denies vomiting Genitourinary: Genitourinary: Denies urinary incontinence Musculoskeletal: Musculoskeletal: Reports no additional musculoskeletal complaints, Denies back pain, Denies arthralgias, Denies joint swelling, Denies neck pain, Denies numbness and Denies tingling Integumentary/Breasts: Skin/Breast: Reports system reviewed and no additional complaints, except as docu and Denies rash Neurologic: Reports system reviewed and no additional complaints, except as documented, Denies Abnormal speech present, Denies dizziness, Denies headache(s), Denies numbness, Denies tingling and Denies weakness PMFSH Past Medical History Attestation statement: The following information was validated with the patient. 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 Physical Exam Vital Signs: Vital Signs: Last Vital Signs Temp 97.3 F 07/13/24 11:07 Pulse 86 07/13/24 11:07 Resp 18 07/13/24 11:07 BP 131/61 07/13/24 11:07 Pulse Ox 96 07/13/24 11:07 O2 Del Method Room Air 07/13/24 11:07 BMI result Body Mass Index 40.1 Const: General: cooperative, healthy appearing, comfortable and no acute distress Orientation/consciousness: patient oriented x3 Limitations: no limitations HEENT: Head: Yes normal to inspection Ears: hearing grossly normal bilaterally, TM normal on the right, EAC's normal, mastoids normal, no periauricular adenopathy and TM abnormal bulging and wth effusion; not erythematous General nose exam: Normal external nose present Face and sinus: Yes normal facial exam Mouth: Normal oral and palatal mucosa present Throat: Yes posterior oropharynx normal Eyes: General: appearance normal, both eyes and all related structures Pupils: Equal, round and reactive pupils present Neck: Neck: Yes normal visual inspection, Yes full ROM, Yes no lymphadenopathy and Yes no meningeal signs Chest: Chest palpation & inspection: normal inspection of the chest Resp: Effort & Inspection: normal respiratory effort Auscultation: clear to auscultation bilaterally Cardio: Rate: regular rate Rhythm: regular rhythm Peripheral pulses: Peripheral pulses 2+ throughout GI: Inspection: Yes normal to inspection Palpation (GI): Soft to palpation and nontender Auscultation: normal bowel sounds Back/Spine/Pelvis: Thoracic/Lumbar Spine: thoracic and lumbar spine normal to inspection Skin: General skin exam: no rashes or lesions noted Neuro: General: patient oriented x3, no meningeal signs, no focal motor deficits and normal sensation to monofilament Cranial nerves: Yes Equal, round and reactive pupils present Cognition (Neuro): normal cognition Speech: No Abnormal speech present Gait exam (Neuro): Normal gait present Motor exam (neuro): 5/5 motor strength present throughout Extrem: General: Yes normal to inspection Medical Decision Making Medical Decision Making MDM Narrative: 59 yo male here with left ear pain x 2 weeks. Has had sneezing, nasal congestion, rhinorrhea and started taking zrytec daily. Noticed some bleeding when cleaning the ear today. No hearing change. Effusion L ear likely secondary to allergic rhinitis. No s/s AOM, otitis externa, malignant otitis externa, mastoiditis Differential Diagnosis Differential Diagnoses: The differential diagnosis associated with the presentation includes see above Admission/Observation Consideration of admission/observation: Escalation of care including admission/observation considered No concern for malignant otitis externa, mastoiditis requiring advanced imaging and or ENT consultation Tests considered The following testing was considered but not selected: No concern for malignant otitis externa, mastoiditis requiring advanced imaging Prescription Management I considered prescription management with: Antibiotic Discharge Plan Discharge Clinical Impression: Acute dysfunction of left eustachian tube Patient Disposition: Home, Self-Care Instructions: Earache (ED) Additional Instructions: Continue the allergy medicine every day Use the nasal spray Motrin or tylenol for pain as needed Prescriptions: New triamcinolone acetonide [Nasacort Allergy] 55 mcg aerosol,spray 2 spray intranasal DAILY Qty: 16.9 0RF Rx Instructions: administer into each nostril No Action naproxen 500 mg tablet 500 mg PO BID PRN (Reason: pain) 7 Days Qty: 14 0RF sildenafil [Viagra] 50 mg tablet 50 mg PO DAILY PRN gabapentin 800 mg tablet 800 mg PO TID atorvastatin 20 mg tablet 20 mg PO DAILY pyridoxine (vitamin B6) 100 mg tablet 100 mg PO DAILY 90 Days Qty: 90 3RF losartan-hydrochlorothiazide 50-12.5 mg tablet PO DAILY Trulicity 4.5 mg/0.5 mL pen injector subcut albuterol sulfate [Ventolin HFA] 90 mcg/actuation HFA aerosol inhaler inhalation melatonin 5 mg tablet 5 mg PO BEDTIME Referrals: Joseph Guerrero MD [Primary Care Provider] - 1 week Discharge Date/Time: 07/13/24 12:28 Print Language: Icelandic
== END 2024-07-13 12:28 | disposition home or self-care (01) ==
LOC: HO.ED 12:20
PROVIDERS: Emergency Provider Emergency Medicine Emergency Medical Services; PCP Internal Medicine
DX: H69.82 Other specified disorders of Eustachian tube, left ear (principal); H92.02 Otalgia, left ear; R06.7 Sneezing; R09.81 Nasal congestion
CPT/HCPCS: 99281; 99283

== ENCOUNTER 2024-07-15 08:14 | Outpatient (REF) | payer OTHER, SELFPAY ==
--- NOTE | ~2024-07-15 | US_ITS ---
CLINICAL HISTORY: Transaminitis US abdomen complete Comparison: None Findings: The visualized pancreas is normal. The aorta and inferior vena cava are normal caliber. The liver is increased in size and echotexture, measuring up to 18.1 cm. There is no intrahepatic bile duct dilatation. The common duct is 2.5 mm in diameter. The gallbladder is normal. There is no sonographic Kelley sign. The main portal vein is antegrade. The right kidney is 12.6 cm in length. The left kidney is 12.6 cm in length. 11 mm lower pole calculus. The spleen is normal. No ascites. IMPRESSION: Mild hepatomegaly and hepatic steatosis. This document has been electronically signed by: Elieser Knapp MD on 07/15/2024 09:44:52
--- OUTSIDE RECORDS SUMMARY | 2024-07-15 08:18 | XMS_ITS | Encounter Summary ---
Author Organization [employer] Address [address] [place] [address] [address] [place] [address] Care Team Providers Care Inspector [employer] Name Role Phone Joseph Guerrero MD Primary Care Provider [phone] Reason for Referral * Imaging (Routine) - Authorized Specialty Diagnoses / Procedures Referred By Contac t Referred To Contact Radiology Diagnoses Transaminitis Procedures US Abdomen Complete Joseph Guerrero MD [address] [place] [address] Phone: tel: fax: [address] Phone: tel: fax: Referral ID Status Reason Start Date Expiration Date V isits Requested Visits Authorized [id number] Authorized 06/04/2024 06/04/2025 1 1 Encounter Details Date Type Department Care Team (Late st Contact Info) Description 06/04/2024 Orders Only [facility] [address] [place] [address] Joseph Guerrero MD [address] [place] [address] Transaminitis (Primary Dx) Social History Tobacco Use Types Packs/Day Years [...] AM EDT documented as of this encounter Functional Status * Over the past 2 weeks, how often have you been bothered by any of the following problems? Question Answer Date of Assessment Author Patient Health Questionnaire-2 Score 0 09/2024 10:30 AM EDT Karen Flores MA * Little interest or pleasure in doing things Answer Date of Assessment Author Not at all 06/04/2024 10:30 AM EDT Jason Flores MA * Feeling down, depressed, or hopeless Answer Date of Assessment Author Not at all 06/04/2024 10:30 AM Jason Coffman MA * Trouble falling or staying asleep, or sleeping too much Answer Date of Assessment Author Several days 06/04/2024 10:30 AM Jason Coffman MA * Feeling tired or having little energy Answer Date of Assessment Author Not at all 06/04/2024 10:30 AM Jason Coffman MA * Poor appetite or overeating Answer Date of Assessment Author Not at all 06/04/2024 10:30 AM Jason Coffman MA * Feeling bad about yourself - or that you are a failure or have let yourself or your family down Answer Date of Assessment Author Not at all 06/04/2024 10:30 AM Jason Coffman MA * Trouble concentrating on things, such as reading the newspaper or watching television Answer Date of Assessment Author Not at all 06/04/2024 10:30 AM Jason Coffman MA * Moving or speaking so slowly that other people could have noticed? Or the opposite - being so fidgety or restless that you have been moving around a lot more than usual. Answer Date of Assessment Author Not at all 06/04/2024 10:30 AM Jason Coffman MA * Thoughts that you would be better off or hurting yourself in some way Answer Date of Assessment Author Not at all 06/04/2024 10:30 AM Jason Coffman MA * Patient Health Questionnaire-9 Score Answer Date of Assessment Author 1 06/04/2024 10:30 AM Jason Coffman MA * How difficult have these problems made it for you to do your work, take care of things at home, or get along with other people? Answer Date of Assessment Author Not difficult at all 06/04/2024 10:30 AM Karen Dsouza MA documented as of this encounter Plan of Treatment Upcoming Encounters Date Type Department Care Team (Late st Contact Info) Description 09/24/2024 10:00 AM EDT Office Visit [facility] [address] [place] [address] Joseph Guerrero MD [address] [place] [address] Scheduled Orders Name Type Priority Associated Diagnoses Orde r Schedule US Abdomen Complete Imaging Routine Transaminitis Expected: 06/04/2024, Expires: 06/04/2025 documented as of this encounter Visit Diagnoses Diagnosis Transaminitis- Primary Nonspecific elevation of levels of transaminase or lactic acid dehydrogenase (LDH) documented in this encounter Additional Health Concerns Assessment Noted Time PHQ-9 Depression Total Score: 1 06/05/19 25 10:30 AM EDT documented as of this encounter Care Teams Inspector [employer] Relationship Specialty Start Date End Date Joseph Guerrero MD [address] [place] [address] PCP - General Internal Medicine 11/22/17 documented as of this encounter
--- OUTSIDE RECORDS SUMMARY | 2024-07-15 08:18 | XMS_ITS | Data Portability ---
Author Organization HALLE Nguyen s, [address] Address [address] [place] [address] Assessment No assessment recorded. Plan of Treatment Reminders Order Date Submit Date Provider Last Modified By Organization Details Last Modified Time Details Appointments None recorded. Lab streptococc us group A, culture, throat 2022 023 [place] ([facility], [address] [place] [address], [place], [address], 3 08:06:51 SARS CoV 2 (COVID-19) Ag, QL, IA, upper respiratory specimen [address] [facility], [address] [place], [address], 3 08:58:10 rapid strep group A, throat 2022 [email or web address] [facility], [address] [place], [address], 3 08:51:23 rapid flu (A+B) [address], [address] [place], [address], 3 08:57:01 Referral None recorded. Procedures None recorded. Surgeries None recorded. Imaging XR, chest, 2 view 2022 023 [email or web address] [facility], [address] [place] [address], [place], [address], 10:34:17 Medication Orders doxycycline hyclate [address] [facility], [address] [place] [address], [id number], 3 12:58:50 ProAir HFA 90 mcg/actuati on aerosol inhaler [address] [facility], [address] [place], [place], [id number], 3 13:48:22 benzonatate 100 [address] [facility], [address] [place] [address], [id number], 12:58:50 Patient TargetsNo targets recorded. Patient Instructions Encounter Date Encounter Id Patient Instructions Last Modified By Organization Details Last Modified Time 09/22/2022 [id number] sore throat: car e instructions Not available 09/22/2022 08:50:22 Based on clinica [...] Pain 3. Wheezing 4. Coughing up Blood [email or web address] Not available 09/24/2022 16:37:53 Assessment: Community-acquire d [...] patient is in agreement with the plan. [email or web address] Not available 09/24/2022 16:43:35 Reason for Referral None Reported. Results Created Date Observation Date Name Description Value Unit Range Abnormal Flag Note LastModifiedBy Organization Detail LastModifiedTime 09/23/1909/25/2022 BETA STREP GP A CULTU RE beta strep gp A culture NEGATI VE Refer ence Range : Negat thai Not Available [facility] ([facility]) [address] [facility], [place], [address], 09/25/2022 08:06:51 09/23/1909/22/2022 SARS CoV 2 (COVI D-19) Ag, QL, IA, upper respi rator y speci men Unknown Analyte negati ve Not Available [address] [place], [address], 09/22/2022 08:47:51 09/23/1909/22/2022 rapid flu (A+B) Unknown Analyte negati ve Not Available [address] [place], [address], 09/22/2022 08:48:07 09/23/1909/22/2022 rapid flu (A+B) Unknown Analyte negati ve Not Available [address] [place], [address], 09/22/2022 08:48:07 09/23/1909/22/2022 rapid strep group A, throa t Unknown Analyte negati ve Not Available [address] [place], [address], 09/22/2022 08:47:58 09/23/19 23 09/22/2022 rapid strep group A, throa t Unknown Analyte Negati ve Not Available [address] [address] [place], [address], 09/22/2022 08:47:58 09/23/19 23 09/22/2022 rapid strep group A, throa t Unknown Analyte yes Not Available [facility] [address] [place], [address], 09/22/2022 08:47:58 09/23/19 23 09/22/2022 XR, chest , 2 view No observ ation record ed. [email or web address] [facility] [address] [place], [address], 09/22/2022 16:15:30 Result Notes None recorded. Problems Name Problem SNOMED Code Status Onset Date Resolution Date Notes Provider Name and Address Organization Details Recorded Time Diabetes mellitus 98339188 Active 2022 Esme Hays null, PA - [facility] 3 08:39:01 Hyperlipidemia 55313454 Active 2022 Esme Hays null, PA - [facility] 3 08:39:07 Hypertensive disorder 35805092 Active 2022 Esme Hays null, PA - [...] Time 09/22/2022 XR, chest, 2 view completed [email or web address] [facility] [address] [place], [address], 09/22/2022 16:15:30 Procedure Notes None recorded. Medical [...] height Body mass index (BMI) Body weight Body temperature Respiratory rate Heart rate Oxygen saturation Oxygen saturation in Arterial blood by Pulse oximetry Systolic blood pressure Diastolic blood pressure Provider Name and Address Organization Details Last Updated DateTime 3 175.26 cm 37.7 kg/m2 627278. 05 g 98 [degF] 18 /min 75 /min 98 % 98 % 136 mm[Hg] 86 mm[Hg] Esme Hays PA - [facility] 3 08:38:13 Social History Question Answer Notes LastModified by Organizat ion Details LastModified Time Tobacco Smoking Status Never Smoker Esme johnson, PA - [facility] 09/22/2022 08:47:46 Have You Recently Traveled Abroad? No Information not available 09/22/2022 Sex: Unknown Functional Status Question Answer Note LastModified by Organizat ion Details LastModified Time Do you use any illicit or recreational drugs? No Information not available 09/22/2022 Do you or have you ever used any other forms of tobacco or nicotine? No Information not available 09/22/2022 What is your level of alcohol consumption? None Information not available 09/22/2022 Mental Status None recorded. Family History Relationship [...] Influenza, MDCK, quadrivalent, PF 2 completed Esme johnson, PA - [facility] 09/22/2022 08:47:29 zoster recombinant 0 completed Esme johnson, PA - [facility] 09/22/2022 08:47:29 COVID-19, mRNA, LNP-S, PF, 100 mcg/0.5mL dose or 50 mcg/0.25mL dose 1 completed Esme johnson, PA - [facility] 09/22/2022 08:47:29 COVID-19, mRNA, LNP-S, PF, 100 mcg/0.5mL dose or 50 mcg/0.25mL dose 1 completed Esme johnson, PA - [facility] 09/22/2022 08:47:29 COVID-19, [...] SNOMED-CT Code Diagnosis ICD10 Code Diagnosis Note [id number] [address] [place] [address] 07/27/2016 14:55:19 07/27/2016 15:28:56 [id number] [address] [place] [address] 08/05/2016 13:25:45 08/05/2016 13:56:06 [id number] [address] [place] [address] 07/29/2016 14:56:16 07/29/2016 15:33:02 [id number] [address] [facility] [address] [facility] [address] 07/26/2016 15:11:17 07/26/2016 15:58:59 [id number] HALLE ELMORE [address] [facility] [place] [address] 09/22/2022 08:04:04 09/22/2022 10:34:17 Acute bronchitis 11833976 J20.9 Acute pharyngitis 034432 003 J02.9 Community acquired pneumonia 220808217 J18.9 Health Concerns Section Related Observation LastModified by Organization Detai ls LastModified Time None Recorded Concern Status LastModified by Organization Details LastModified Time None Recorded Advance Directives Directive None Recorded Payers Insurance Date Sequence Insurance Name Policy Number Policy Lynne Covered Member ID Lynne Member ID Guarantor Name 10/24/2022 1 [facility] (O) [id number] Kalpana Fischer [id number] 1 [id number] Mark Fischer Notes Date Note Type Note Provider Name and Address Organization Details Recorded Time 09/22/2022 text/html Sore throatRepor bib bypatient.Notes:57 y.o male pt with h.o diabetes presents with nasal congestion, fever, cough and sore throat x 4 days. Pt denies chest pain, or SOB. Pt speaking and swallowing normal. HALLE ELMORE [facility] [place], [address], [place] - [facility] 09/24/2022 16:43:57
--- OUTSIDE RECORDS SUMMARY | 2024-07-15 08:18 | XMS_ITS | Encounter Summary ---
Author Organization [employer] Address [address] [place] [address] Care Team Providers Care Cash Surrender Calculator Name Role Phone Joseph Guerrero MD Primary Care Provider [phone]- [phone] Reason for Visit * Reason Onset Date Comments Call Back Request 07/28/2023 Encounter Details Date Type Department Care Team ([facility] st Contact Info) Description 07/28/2023 Telephone [facility] [address] [place] [address] Joseph Guerrero MD [address] [place] [phone] Call Back Request Social History Tobacco Use [...] written on 07/05 is already at the [facility] pharmacy. Unable to reach pt, left message for pt to call back. * Telephone Encounter - Mariely Jiménez - 07/28/2023 12:12 PM EDT Tc from pt requesting a call back, pt is requesting Trulicity 3MG to be send to [facility]. documented in this encounter Plan of Treatment Upcoming Encounters Date Type Department Care Team (Late st Contact Info) Description 09/24/2024 10:00 AM EDT Office Visit [facility] [address] [place] [address] Joseph Guerrero MD [address] [place] [address] documented as of this encounter Visit Diagnoses Not on filedocumented in this encounter Additional Health Concerns Assessment Noted Time PHQ-9 Depression Total Score: 0 02/11/20 22 10:58 AM EST documented as of this encounter Care Teams Cash Surrender Calculator Relationship Specialty Start Date End Date Joseph Guerrero MD [address] [place] [address] PCP - General Internal Medicine 11/22/17 documented as of this encounter
--- OUTSIDE RECORDS SUMMARY | 2024-07-15 08:18 | XMS_ITS | Encounter Summary ---
Author Organization [employer] Address [address] [place] [address] [address] [place] [address] Care Team Providers Care Buffing Line Set Up Worker Name Role Phone Joseph Guerrero MD Primary Care Provider [phone] Encounter Details Date Type Department Care Team (Late Contact Info) Description 05/26/2023 Orders Only [facility] [address], [place] [phone] Joseph Guerrero MD [address] [place], [place] [phone] Social History Tobacco Use Types Packs/Day Years [...] Encounters Date Type Department Care Team (Late Contact Info) Description 09/24/2024 10:00 AM EDT Office Visit [facility] [address], [place] [phone] Joseph Guerrero MD [address] [place] [address] documented as of this encounter Visit Diagnoses Not on filedocumented in this encounter Additional Health Concerns Assessment Noted Time PHQ-9 Depression Total Score: 0 02/11/20 22 10:58 AM EST documented as of this encounter Care Teams Buffing Line Set Up Worker Relationship Specialty Start Date End Date Joseph Guerrero MD [address] [place] [address] [place] [address] PCP - General Internal Medicine 11/22/17 documented as of this encounter
--- OUTSIDE RECORDS SUMMARY | 2024-07-15 08:18 | XMS_ITS | Clinical Summary ---
Author Organization [employer] Address [address] [place] [address] Care Team Providers Care Dispatcher Service Chief Name Role Phone Joseph Guerrero MD Primary Care Provider [phone] Allergies No known active allergies Medications diclofenac (Cataflam) 50 MG tablet take 1 tablet by oral route 3 times every day 09/14/19 22 Active HYDROcodone-virgie taminophen ([place]) 5-325 MG tablet take 1 tablet by oral route every 4 - 6 hours as needed for pain 10/17/19 21 Active metFORMIN (Glucophage) 500 MG tablet take 1 tablet by oral route 2 times every day with morning and evening meals 02/17/20 21 Active Blood Pressure Monitoring (Comfort Touch BP Cuff/Medium) misc Active tamsulosin (Flomax) 0.4 MG 24 hr capsuleIndicati ons:Kidney stone TAKE ONE CAPSULE DAILY 30 MINUTES FOLLOWING THE SAME MEAL EACH DAY 28 capsule 05/25/19 23 Active diphenhydrAMINE (BENADryl) 25 MG tabletIndicatio ns:Adjustment insomnia Take 1 tablet (25 mg) by mouth if needed at bedtime for sleep. 2 tabs at bedtime 30 tablet 10/13/19 23 Active famotidine (Pepcid) 20 MG tabletIndicatio ns:Post-nasal drip Take 1 tablet (20 mg) by mouth Once per day. 30 tablet 1 06/21/19 24 Active pseudoephedrine (Sudafed) 30 MG tabletIndicatio ns:Other cough Take 1 tablet (30 mg) by mouth every 4 (four) hours if needed for congestion for up to 10 days. 30 tablet 06/21/19 24 Active albuterol 108 (90 Base) MCG/ACT inhalerIndicati ons:Other cough Inhale 2 puffs every 4 (four) hours if needed for wheezing. 18 g 06/21/19 24 Active Diclofenac Sodium 1 % gelIndications: Arthritis of left shoulder region To apply to the affected area 3 times a day 100 g 06/21/19 24 Active melatonin 5 MG tablet TAKE ONE TABLET AT BEDTIME 30 tablet 3 03/16/19 25 Active gabapentin (Neurontin) 800 MG tablet Take 1 tablet (800 mg) by mouth 3 times daily. 90 tablet 2 05/09/19 25 Active atorvastatin (Lipitor) 20 MG tablet TAKE ONE TABLET BY MOUTH EVERY DAY 90 tablet 1 05/31/19 25 Active semaglutide (Ozempic, 1 MG/DOSE,) 4 MG/3ML solution pen-injectorInd ications:Type 2 diabetes mellitus with diabetic neuropathy, without long-term current use of insulin (CMS/HCC) Inject 1 mg under the skin 1 (one) time per week. 1 each 11 06/05/19 25 Active losartan-hydroC HLOROthiazide (Hyzaar) 50-12.5 MG tabletIndicatio ns:Primary hypertension,Wh eezing Take 1 tablet by mouth Once per day. 90 tablet 3 06/11/19 25 026 Active Dulaglutide 4.5 MG/0.5ML solution auto-injectorIn dications:Type 2 diabetes mellitus with diabetic neuropathy, without long-term current use of insulin (CMS/HCC),Obesi ty (BMI 30-39.9) Inject 4.5 mg under the skin 1 (one) time per week for 4 doses. 2 mL 1 06/12/19 25 Active Viagra 50 MG tabletIndicatio ns:Other male erectile dysfunction TAKE 1 TABLET 1 HOUR BEFORE SEXUAL RELATIONS ONCE DAILY NEEDED. 8 tablet 5 06/26/19 25 Active Viagra 50 MG tabletIndicatio ns:Other male erectile dysfunction TAKE 1 TABLET 1 HOUR BEFORE SEXUAL RELATIONS ONCE DAILY NEEDED. 8 tablet 5 01/04/20 24 025 Discontinued Active Problems Problem Noted Date Diagnosed Date [...] Encounters Date Type Department Care Team Description 07/06/[address] [facility] [address] [place] [address] Joseph Guerrero MD Type 2 diabetes mellitus with diabetic neuropathy, without long-term current use of insulin ([facility]) 06/22/[address] [facility] [address] [place] [address] Joseph Guerrero MD Other male erectile dysfunction 06/07/2024 Telephone [facility] [address] [place] [address] Joseph Guerrero MD Med Refill; Medication Question 06/06/[address] [facility] [address] [place] [address] Joseph Guerrero MD Prior Authorization 06/04/2024 10:00 AM EDT Office Visit [facility] [address] [place] [address] Joseph Guerrero MD Primary hypertension (Primary Dx); Type 2 diabetes mellitus with diabetic neuropathy, without long-term current use of insulin ([facility]); Other male erectile dysfunction; Hematuria, unspecified type; Wheezing 06/04/[address] [facility] [address] [place] [address] Joseph Guerrero MD Transaminitis (Primary Dx) 06/04/2024 Travel 06/03/2024 Telephone [facility] [address] [facility] [place] [address] Joseph Guerrero MD Insurance 05/29/[address] [facility] [address] [facility] [place] [address] Joseph Guerrero MD 05/08/[address] [facility] [address] [facility] [place] [address] Joseph Guerrero MD from Last 3 Months Immunizations Immunization Administration Dates Next Due Influenza Injectable Quadriv [...] Description 09/24/2024 10:00 AM EDT Office Visit [facility] [address] [place] [address] Joseph Guerrero MD [address] [place] [address] Health Maintenance Due Date Last Done Comments CT Colonography 1965 Dental Oral Exam 1965 Dental Prophylaxis 1965 FIT DNA/Cologuard 1965 FIT 1965 FOBT 1965 HIV Screening 1965 Sigmoidoscopy 1965 Hepatitis B Vaccines (1 of 3 - 19+ 3-dose series) 1984 Zoster Vaccines (2 of 2) 02/05/2020 12/11/2019 Pneumococcal Vaccine: 50+ Years (2 of 2 - PCV) 12/10/2020 12/11/2019 Dental X-Ray: Bitewings 06/05/2023 06/03/2022 Influenza Vaccine (#1) 2023 , 02/05/2021, 12/11/2019 Diabetes: Hemoglobin A1C 09/02/2024 025, 06/21/2023, 03/06/2023, Additional history exists Alcohol/Substance Use Screening 06/04/2025 06/04/2024 Dental X-Ray: Full Mouth 06/04/2025 06/03/2022 Depression Screening 06/04/2025 06/04/2024, 06/05/19 25 Diabetes: Foot Exam 06/04/2025 06/04/2024, 10/12/2022, 10/12/2022, Additional history exists Diabetes: Urine Protein Screening 06/04/2025 06/04/2024, 12/03/2019 Lipid Panel 06/04/2025 06/04/2024, 03/31, 12/03/2019 SDOH Screening 06/04/2025 06/04/2024 Tobacco Screening 06/04/2025 06/04/2024 Eye Exam 09/27/2025 09/28/2023, 08/0 02/2023, 09/28/2023, Additional history exists DTaP/Tdap/Td Vaccines (3 - Td or Tdap) 04/20/2032 04/20/2022, 11/22/2017 Colonoscopy 11/19/2033 11/20/2023, 11/20/2023 Colorectal Cancer Screening 11/19/2033 RSV Patients and Patients Aged 60 years or older (1 - 1-dose 75+ series) 2040 COVID-19 Vaccine Completed 12/27/2023, , 12/30/2021, Additional history exists Hepatitis C Screening Completed 06/04/2024 HIB Vaccines Aged Out No longer eligi [...] patient's age to complete this topic Meningococcal B Vaccine Aged Out No l onger eligible based on patient's age to complete [...] Procedure Name Priority Date/Time Associated Diagnosis Comments ALBUMIN, RANDOM URINE W/CREATININE Routine 06/04/2024 10:37 AM EDT Type 2 diabetes mellitus with diabetic neuropathy, without long-term current use of insulin (CMS/HCC) HEPATITIS C AB W/REFL TO HCV RNA, QN, PCR Routine 06/04/2024 10:31 AM EDT Primary hypertension Type 2 diabetes mellitus with diabetic neuropathy, without long-term current use of insulin (CMS/HCC) TSH W/REFLEX TO FT4 Routine 06/04/2024 1 0:31 AM EDT Primary hypertension Type 2 diabetes mellitus with diabetic neuropathy, without long-term current use of insulin (CMS/HCC) LIPID PANEL, STANDARD Routine 06/04/2024 10:31 AM EDT Primary hypertension Type 2 diabetes mellitus with diabetic neuropathy, without long-term current use of insulin (CMS/HCC) COMPREHENSIVE METABOLIC PANEL Routine 06/04/2024 10:31 AM EDT Primary hypertension Type 2 diabetes mellitus with diabetic neuropathy, without long-term current use of insulin (CMS/HCC) CBC WITH AUTO DIFFERENTIAL Routine 06/04/2024 10:31 AM EDT Primary hypertension Type 2 diabetes mellitus with diabetic neuropathy, without long-term current use of insulin (CMS/HCC) POCT GLUCOSE Routine 06/04/2024 10:20 AM EDT Type 2 diabetes mellitus with diabetic neuropathy, without long-term current use of insulin (CMS/HCC) POCT GLYCATED HEMOGLOBIN, TOTAL Routine 03/05/2024 4:05 PM EST Type 2 diabetes mellitus with diabetic neuropathy, without long-term current use of insulin ([facility]) HM COLONOSCOPY Routine 11/20/2023 4:06 PM EDT INTRAORAL - COMPLETE SERIES OF RADIOGRAPHIC IMAGES Routine 06/03/2022 10:00 AM EDT from Last 3 Months or Most Recently Relevant to Health Maintenance Results * (ABNORMAL) Albumin, Random Urine W/Creatinine (06/04/2024 10:37 AM EDT) Creatinine, Urine 150.24 mg/dL [facility] Microalbumin Urine 333.0 mg/L [facility] Microalbum Creatinine Ratio Ur 221.6(H) <30 ug/mg cr [facility] Comment:Albumin/Creatinine R atio Reference Ranges: Normal: < 30 ug/mg creatinine Microalbuminuria: 30 - 300 ug/mg creatinineClinical Albuminuria: > 300 ug/mg creatinine Urine (Urine, Random) 06/04/2024 10:37 AM EDT 06/04/2024 2:05 PM EDT us Joseph Guerrero MD LAB URINE ORDERABLES Final Result Performing Organization Address City/[facility]/ZIP Co de Phone Number [facility] [address] [place] [phone] * TSH W/Reflex to FT4 (06/04/2024 10:31 AM EDT) TSH reflex Free T4 0.71 0.32 - 4.0 uIU/mL [facility] Blood Venous blood specimen / Unknown 06/04/2024 10:31 AM EDT 06/04/2024 2:06 PM EDT us Joseph Guerrero MD LAB BLOOD ORDERABLES Final Result Performing Organization Address City/[facility]/ZIP Co de Phone Number [facility] [address] [place] [phone] * (ABNORMAL) CBC auto differential (06/04/2024 10:31 AM EDT) White Blood Count 4.2(L) 4.8 - 10.8 X10*3/uL [facility] Red Blood Count 5.37 4.60 - 5.80 X10*6/uL [facility] Hemoglobin 15.7 14.0 - 18.0 g/dl [facility] Hematocrit 45.5 42.0 - 52.0 % [facility] Mean Corpuscular Volume 84.7 80.0 - 98.0 fL [facility] Mean Corpuscular Hemoglobin 29.2 27.0 - 33.0 pg [facility] Mean Corpuscular HGB Conc 34.5 31.0 - 36.0 g/dl [facility] Red Cell Distribution Width 13.7 11.0 - 16.0 % [facility] Platelet Count 213 160 - 400 X10*3/uL [facility] Mean Platelet Volume 9.1(L) 9.4 - 12.4 fL [facility] Neutrophils Percent Auto 36.5(L) 45 - 73 % [facility] Imm Gran Pct Auto 0.5(H) 0.0 - 0.4 % [facility] Lymphocytes Percent Auto 46.0(H) 20 - 40 % [facility] Monocytes Percent Auto 10.4 2 - 11 % [facility] Eosinophils Percent Auto 5.9(H) 0 - 4 % [facility] Basophils Percent Auto 0.7 0 - 2 % [facility] NRBC Pct Auto 0.0 0.0 - 0.2 /100WBC [facility] Neutrophils Absolute Auto 1.6(L) 2.0 - 8.3 x10*3/uL [facility] Imm Gran Abs Auto 0.02 0.00 - 0.03 X10*3/uL [facility] Lymphocytes Absolute Auto 2.0 1.2 - 4.9 X10*3/uL [facility] Monocytes Absolute Auto 0.4 0.1 - 1.2 X10*3/uL [facility] Eosinophils Absolute Auto 0.3 0.0 - 0.4 X10*3/uL [facility] Basophils Absolute Auto 0.0 0.0 - 0.2 X10*3/uL [facility] NRBC Abs Auto 0.000 0.0 - 0.012 X10*3/uL [facility] Blood Venous blood specimen / Unknown 06/04/2024 10:31 AM EDT 06/04/2024 2:06 PM EDT us Joseph Guerrero MD LAB BLOOD ORDERABLES Final Result Performing Organization Address City/[facility]/ZIP Co de Phone Number [facility] [address] [place] [phone] * Hepatitis C Antibody with Reflex to HCV, RNA, Quantitative, Real-Time PCR (06/04/2024 10:31 AM EDT) Hepatitis C Antibody Nonreactive Nonreactive [facility] Comment:Antibodies to HCV no t detected; does not exclude early acuteHCV infection. Blood Venous blood specimen / Unknown 06/04/2024 10:31 AM EDT 06/04/2024 2:06 PM EDT us Joseph Guerrero MD LAB BLOOD ORDERABLES Final Result Performing Organization Address [facility]/ZIP Co de Phone Number [facility] [address] [place] [phone] * Lipid Panel, Standard (06/04/2024 10:31 AM EDT) Triglycerides 130 <150 mg/dL [facility] Comment:Desirable Triglyceri de: less than 150 mg/dLBorderline High Triglyceride 150-199 mg/dLHigh Triglyceride: 200-499 mg/dLVery High Triglyceride: greater than or equal to 5OO mg/dL Cholesterol 128 <200 mg/dL [facility] Comment:Desirable Cholestero l: less than 200 mg/dLBorderline High Cholesterol: 200-239 mg/dLHigh Cholesterol: greater than 239 mg/dL LDL Cholesterol Calculated 56 <100 mg/dL [facility] Comment:Desirable LDL: less than 100 mg/dLNear Optimal/Above Optimal LDL: 110- 129 mg/dLBorderline High LDL: 130-159 mg/dLHigh LDL: 160-189 mg/dLVery High LDL: greater than or equal to 190 mg/dL HDL Cholesterol 46 >40 mg/dL [facility] Comment:Desirable HDL: great er than 40 mg/dL Note: This HDL assay may give artificially low results in patients with liver disease. Blood Venous blood specimen / Unknown 06/04/2024 10:31 AM EDT 06/04/2024 2:06 PM EDT us Joseph Guerrero MD LAB BLOOD ORDERABLES Final Result [facility] [address] [place] [phone] * (ABNORMAL) Comprehensive Metabolic Panel (06/04/2024 10:31 AM EDT) Sodium 139 135 - 145 mmol/L [facility] Potassium 3.7 3.3 - 5.1 mmol/L [facility] Chloride 107 96 - 108 mmol/L [facility] Carbon Dioxide 27 22 - 29 mmol/L [facility] Anion Gap 9(L) 12 - 20 [facility] Urea Nitrogen (BUN) 14 9 - 16 mg/dL [facility] Creatinine, Serum 0.82 0.5 - 1.4 mg/dL [facility] Estimated Glomerular Filt Rate >60 [facility] Comment:Chronic Kidney Disea se: Estimated GFR < 60 mL/min/1.80l1Crwmew Kidney Disease: Estimated GFR < 15 mL/min/1.73m2 Glucose 152(H) 60 - 115 mg/dL [facility] Calcium 9.1 8.4 - 10.2 mg/dL [facility] Bilirubin, Total 0.4 0.0 - 1.0 mg/dL [facility] Aspartate Amino Transferase 30 5 - 37 U/L [facility] Alanine Aminotransferase 45(H) 0 - 40 U/L [facility] Total Protein 7.2 6.5 - 8.0 g/dL [facility] Albumin Level 4.0 3.5 - 5.0 g/dL [facility] Alkaline Phosphatase 59 39 - 117 U/L [facility] Blood Venous blood specimen / Unknown 06/04/2024 10:31 AM EDT 06/04/2024 2:06 PM EDT Joseph Guerrero MD LAB BLOOD ORDERABLES Final Result [facility] [address] [place] [phone] * (ABNORMAL) POCT Glucose (06/04/2024 10:20 AM EDT) Glucose Blood, POC 205(A) 60 - 200 mg/dL [employer] Lot # [id number] Comment:RANDOM Lot# Expiration Date [id number] Blood Capillary blood specimen / Unknown 06/04/2024 10:20 AM EDT Joseph Guerrero MD POINT OF CARE TEST ENTER/ED IT ORDERABLES Final Result * (ABNORMAL) POCT HGB A1C (03/05/2024 4:05 PM EST) Hemoglobin A1C 6.5(A) 4.0 - 6.0 % [employer] Lot # [id number] Comment:RANDOM Lot# Expiration Date 812,026 Blood 03/05/2024 4:05 PM EST Joseph Guerrero MD POINT OF CARE TEST ENTER/ED IT ORDERABLES Final Result * Hm Colonoscopy (11/20/2023 4:06 PM EDT) Historical Provider HEALTH MAINTENANCE Final Result from Last 3 Months or Most Recently Relevant to Health Maintenance Insurance [facility] Care Teams Dispatcher Service Chief Relationship Specialty Start Date End Date Joseph Guerrero MD [address] [place] [address] PCP - General Internal Medicine 11/22/17
--- OUTSIDE RECORDS SUMMARY | 2024-07-15 08:18 | XMS_ITS | Encounter Summary ---
Author Organization [employer] Address [address] [place] [address] 7 [place] [address] Care Team Providers Care Gameplay Engineer Name Role Phone Joseph Guerrero MD Primary Care Provider [phone] Encounter Details Date Type Department Care Team (Late st Contact Info) Description 11/20/2023 Orders Only [facility] [address] [place], [place] [phone] ProviderAdam MD Social History Tobacco Use Types [...] EDT Office Visit [facility] [address] [place], [place] [phone] Joseph Guerrero MD [address] [place] [address] documented as of this encounter Procedures Procedure [...] documented as of this encounter Care Teams Gameplay Engineer Relationship Specialty Start Date End Date Joseph Guerrero MD [address] [place] [phone] PCP - General Internal Medicine 11/22/17 documented as of this encounter
--- OUTSIDE RECORDS SUMMARY | 2024-07-15 08:18 | XMS_ITS | Clinical Summary ---
Author Organization [facility] Address [address] [place] [address] Care Team Providers Care Repair Manager Name Role Phone Lisa Verdugo MD Primary [...] WITH FOOD OR MILK 2 06/12/2017 Active [place] 3 1000 MG CAPS Take 1 capsule [...] age to complete this topic Care Teams Repair Manager Relationship Specialty Start Date End Date Lisa Verdugo MD PCP - General Internal Medicine 06/22/17
--- OUTSIDE RECORDS SUMMARY | 2024-07-15 08:18 | XMS_ITS | Encounter Summary ---
Author Organization [employer] Address [address] 7 [place] [address] Care Team Providers Care Shooter Helper Name Role Phone Joseph Guerrero MD Primary Care Provider [phone] Reason for Visit * Reason Onset Date Comments Med Refill 07/06/2024 Encounter Details Date Type Department Care Team ([facility] st Contact Info) Description 07/06/2024 Refill [facility] [address] [place], [place] [phone] Joseph Guerrero MD [address] [place] [address] Type 2 diabetes mellitus with diabetic neuropathy, without long-term current use of insulin ([facility]) Social History Tobacco Use Types Packs/Day Years [...] Description 09/24/2024 10:00 AM EDT Office Visit [facility] [address] [place] [address] Joseph Guerrero MD [address] [place] [address] documented as of this encounter Visit Diagnoses Diagnosis Type 2 diabetes mellitus with diabetic neuropathy, without long-term current use of insulin ([facility]) documented in this encounter Additional Health Concerns Assessment Noted Time PHQ-9 Depression Total Score: 1 06/05/19 25 10:30 AM EDT documented as of this encounter Care Teams Shooter Helper Relationship Specialty Start Date End Date Joseph Guerrero MD [address] [place] [address] PCP - General Internal Medicine 11/22/17 documented as of this encounter
== END 2024-07-15 08:15 | disposition home or self-care (01) ==
LOC: HO.HMGCX 08:14
PROVIDERS: PCP Internal Medicine; Visit Provider Internal Medicine
DX: R74.01 Elevation of levels of liver transaminase levels (principal)
CPT/HCPCS: 76700

== ENCOUNTER → 2024-07-15 08:17 | Outpatient (BNV) | payer OTHER, SELFPAY | PROVIDERS: PCP Internal Medicine; Visit Provider Radiology Vascular & Interventional Radiology | DX: R16.0 Hepatomegaly, not elsewhere classified (principal); K76.0 Fatty (change of) liver, not elsewhere classified | CPT/HCPCS: 76700 ==

== ENCOUNTER 2024-07-19 15:41 | Outpatient (REF) | payer OTHER, SELFPAY ==
--- NOTE | 2024-07-19 | PFT_ITS ---
Flows: FEV1: 87 % of predicted at 3.04 L FVC: 86 % of predicted at 3.86 L FEV1/FVC: 79 % Bronchodilator response: Absent Volumes: Total lung capacity: 78 % of predicted at 5.47 L Residual volume: 76 % of predicted at 1.61 L Slow vital capacity: 78 % of predicted at 3.86 L Expiratory reserve volume: 48 % of predicted at 0.61 L Diffusion capacity: Normal Impression: Mild restrictive ventilatory defect with no bronchodilator response. Decreased expiratory reserve volume suggests extrathoracic restriction likely secondary to abdominal obesity. MTDD
[2024-07-19 16:21] VITALS: PULSE 83; O2SAT 99
== END 2024-07-19 15:42 | disposition home or self-care (01) ==
LOC: HO.RESP 15:41
PROVIDERS: PCP Internal Medicine; Visit Provider Internal Medicine
DX: R06.2 Wheezing (principal)
CPT/HCPCS: 94010; 94640; 94727; 94729

== ENCOUNTER → 2024-07-19 15:47 | Outpatient (BNV) | payer OTHER, SELFPAY | PROVIDERS: PCP Internal Medicine; Visit Provider Internal Medicine Pulmonary Disease | DX: R06.2 Wheezing (principal) | CPT/HCPCS: 94060; 94727; 94729 ==

== ENCOUNTER 2024-09-24 10:55 | Outpatient (REF) | payer OTHER, SELFPAY ==
--- OUTSIDE RECORDS SUMMARY | 2024-09-24 12:10 | XMS_ITS | Clinical Summary ---
Author Organization [facility] Address [address] [place] [address] Care Team Providers Care Television Parts Tester Name Role Phone Lisa Verdugo MD Primary [...] WITH FOOD OR MILK 2 06/12/2017 Active [place] 3 1000 MG CAPS Take 1 [...] (1 of 2) 2015 Influenza Vaccine (#1) 2024 Pneumococcal Vaccine Aged Out No long er eligible based on patient's age to complete this topic RSV Ped < 20 months Aged Out No longe r eligible based on patient's age to complete this topic Care Teams Television Parts Tester Relationship Specialty Start Date End Date Lisa Verdugo MD PCP - General Internal Medicine 06/22/17
--- OUTSIDE RECORDS SUMMARY | 2024-09-24 12:10 | XMS_ITS | Encounter Summary ---
Author Organization [employer] Address [address] [facility] [address] [place] [address] Care Team Providers Care Sugar Drier Name Role Phone Joseph Guerrero MD Primary Care Provider [phone] Encounter Details Date Type Department Care Team (Latest Contact Info) Description 09/24/2024 Travel Social History Tobacco Use Types Packs/Day [...] Care Team (Late st Contact Info) Description 01/07/2025 1:00 PM EST Office Visit [facility] [address] [place] [address] Frankie, [place], OD [address] [place] [address] documented as of this encounter Visit Diagnoses Not on filedocumented in this encounter Additional Health Concerns Assessment Noted Time PHQ-9 Depression Total Score: 1 06/05/19 25 10:30 AM EDT documented as of this encounter Care Teams Sugar Drier Relationship Specialty Start Date End Date Joseph Guerrero MD [address] [place] [phone] PCP - General Internal Medicine 11/22/17 documented as of this encounter
--- OUTSIDE RECORDS SUMMARY | 2024-09-24 12:10 | XMS_ITS | Data Portability ---
Author Organization [facility], [address] Address [address] [place] [address] Assessment No assessment recorded. Plan of Treatment Reminders Order Date Submit Date Provider Last Modified By Organization Details Last Modified Time Details Appointments None recorded. Lab streptococc us group A, culture, throat 2022 023 [email or web address] [facility], [address] [place] [address], [place], [address], 3 08:06:51 SARS CoV 2 (COVID-19) Ag, QL, IA, upper respiratory specimen 2022 023 [facility], [address] [place], [address], 3 08:58:10 rapid strep group A, throat 2022 023 [email or web address] [facility], [address] [place], [address], 3 08:51:23 rapid flu (A+B) 2022 023 [facility], [address] [place], [address], 3 08:57:01 Referral None recorded. Procedures None recorded. Surgeries None recorded. Imaging XR, chest, 2 view 2022 023 [email or web address], [address] [place], [id number], 10:34:17 Medication Orders doxycycline hyclate 100 mg capsule 2022 023 [facility], [address] [place] [address], [id number], 3 12:58:50 ProAir HFA 90 mcg/actuati on aerosol inhaler 2022 023 [facility], [address] [place], [place], [id number], 3 13:48:22 benzonatate 100 mg capsule 2022 023 [facility], [address] [place] [address], [id number], 12:58:50 Patient TargetsNo targets recorded. Patient Instructions Encounter Date Encounter Id Patient Instructions Last Modified By Organization Details Last Modified Time 09/22/2022 [id number] sore throat: car e instructions Not available [...] Pain 3. Wheezing 4. Coughing up Blood [email or web address] Not available 09/24/2022 16:37:53 Assessment: Community-acquire d [...] patient is in agreement with the plan. [email or web address] Not available 09/24/2022 16:43:35 Reason for Referral None Reported. Results Created Date Observation Date Name Description Value Unit Range Abnormal Flag Note LastModifiedBy Organization Detail LastModifiedTime 09/23/1909/25/2022 BETA STREP GP A CULTU RE beta strep gp A culture NEGATI VE Refer ence Range : Negat thai Not Available [facility] ([facility]) [address] [facility], [place], [address], 09/25/2022 08:06:51 09/23/1909/22/2022 SARS CoV 2 (COVI D-19) Ag, QL, IA, upper respi rator y speci men Unknown Analyte negati ve Not Available [address] [place], [address], 09/22/2022 08:47:51 09/23/19 23 09/22/2022 rapid flu (A+B) Unknown Analyte negati ve Not Available [address] [place], [address], 09/22/2022 08:48:07 09/23/19 23 09/22/2022 rapid flu (A+B) Unknown Analyte negati ve Not Available [address] [place], [address], 09/22/2022 08:48:07 09/23/19 23 09/22/2022 rapid strep group A, throa t Unknown Analyte negati ve Not Available [address] [place], [address], 09/22/2022 08:47:58 09/23/19 23 09/22/2022 rapid strep group A, throa t Unknown Analyte Negati ve Not Available [address] [address] [address] [place], [address], 09/22/2022 08:47:58 09/23/19 23 09/22/2022 rapid strep group A, throa t Unknown Analyte yes Not Available [address] [place], [address], 09/22/2022 08:47:58 09/23/1909/22/2022 XR, chest , 2 view No observ ation record ed. [email or web address] [facility] [address] [place], [id number], 09/22/2022 16:15:30 Result Notes None recorded. Problems Name Problem SNOMED Code Status Onset Date Resolution Date Notes Provider Name and Address Organization Details Recorded Time Diabetes mellitus 08887273 Active 2022 Esme johnson PA - [facility] 3 08:39:01 Hyperlipidemia 60217267 Active 2022 Esme johnson PA - [facility] 3 08:39:07 Hypertensive disorder 46502943 Active 2022 Esme johnson PA - [facility] 3 08:39:11 Problem Notes None recorded. Procedures Surgical History Date Name Laterality Status Provider Name and Address Organization Details Recorded Time plastic repair of rotator cuff of shoulder completed Esme NERI - [facility] 09/22/2022 08:40:04 Imaging Results None recorded. Procedure Notes None recorded. Medical Equipment None [...] in Arterial blood by Pulse oximetry Systolic And Diastolic Provider Name and Address Organization Details Last Updated DateTime 3 175.26 cm 37.7 kg/m2 236022. 05 g 6 98 [degF] 18 /min 75 /min 98 % 98 % 136/86 mm[Hg] Esme Hays PA - [facility] 3 08:38:13 Social History Question Answer Notes LastModified by Organizat [employer] Details LastModified Time Tobacco Smoking Status Never [...] SNOMED-CT Code Diagnosis ICD10 Code Diagnosis Note [id number] [address] [place] [address] 07/27/2016 14:55:19 07/27/2016 15:28:56 [id number] [address] [place] [address] 08/05/2016 13:25:45 08/05/2016 13:56:06 [id number] [address] [place] [address] 07/29/2016 14:56:16 07/29/2016 15:33:02 [id number] [address] [place] [address] 07/26/2016 15:11:17 07/26/2016 15:58:59 [id number] [facility] [address] [facility] [address] [facility] [place] [address] 09/22/2022 08:04:04 09/22/2022 10:34:17 Acute bronchitis 41258958 J20.9 Acute pharyngitis 206094 003 J02.9 Community acquired pneumonia 745835629 J18.9 Health Concerns Section Related Observation LastModified by Organization Detai ls LastModified Time None Recorded Concern Status LastModified by Organization Details LastModified Time None Recorded Advance Directives Directive None Recorded Payers Insurance Date Sequence Insurance Name Policy Number Policy Lynne Covered Member ID Lynne Member ID Guarantor Name 10/24/2022 1 [facility] (O) [id number] Kalpana Fischer [id number] Mark Fischer
[2024-09-24 14:03] LABS: MANUAL DIFF FLAG NO
[2024-09-24 14:12] LABS: Hematocrit 46.7 % (42.0-52.0); Hemoglobin 15.7 g/dl (14.0-18.0); Imm Gran Abs Auto 0.01 X10*3/uL (0.00-0.03); Imm Gran Pct Auto 0.2 % (0.0-0.4); Lymphocytes Absolute Auto 2.2 X10*3/uL (1.2-4.9); Mean Corpuscular HGB Conc 33.6 g/dl (31.0-36.0); Mean Corpuscular Hemoglobin 28.7 pg (27.0-33.0); Mean Corpuscular Volume 85.4 fL (80.0-98.0); NRBC Abs Auto 0.000 X10*3/uL (0.0-0.012); NRBC Pct Auto 0.0 /100WBC (0.0-0.2); Platelet Count 220 X10*3/uL (160-400); Red Blood Count 5.47 X10*6/uL (4.60-5.80); White Blood Count 4.6 X10*3/uL (4.8-10.8)
[2024-09-24 14:22] LABS: Hemoglobin A1C 191.7218 umol/L; Total Hemoglobin (HGBA1C) 4033.6471 umol/L
[2024-09-24 14:38] LABS: Alanine Aminotransferase 41 U/L (0-40); Albumin Level 4.2 g/dL (3.5-5.0); Alkaline Phosphatase 61 U/L (39-117); Anion Gap 12 (12-20); Aspartate Amino Transferase 30 U/L (5-37); Blood Urea Nitrogen 14 mg/dL (9-16); Calcium 8.8 mg/dL (8.4-10.2); Carbon Dioxide 29 mmol/L (22-29); Chloride 103 mmol/L (96-108); Estimated Glomerular Filt Rate > 60; Potassium 3.9 mmol/L (3.3-5.1); Sodium 140 mmol/L (135-145); Total Protein 7.5 g/dL (6.5-8.0)
[2024-09-24 18:43] LABS: Folate 10.6 ng/mL (> or = 4.0); Vitamin B12 440 pg/mL (200-900)
== END 2024-09-24 10:56 | disposition home or self-care (01) ==
LOC: HO.CHCLDS 10:55
PROVIDERS: Visit Provider Internal Medicine
DX: Z11.3 Encounter for screening for infections with a predominantly sexual mode of transmission (principal); R42 Dizziness and giddiness
CPT/HCPCS: 36415; 80053; 82607; 82746; 83036; 84443; 85025; 86592

== ENCOUNTER 2024-09-28 10:51 | Outpatient (REF) | payer OTHER, SELFPAY ==
--- NOTE | ~2024-09-28 | MR_ITS ---
CLINICAL HISTORY: persistent dizziness MR brain without contrast Comparison: None Findings: No acute infarct. Single tiny FLAIR hyperintense focus in the left frontal white matter likely incidental finding/ due to minimal age-related small-vessel ischemic changes. On axial T2 weighted image 7, there is somewhat asymmetric appearance of the internal auditory canals (with partial effacement of the CSF signal intensity on the right side). Although finding may be artifactual/due to partial volume averaging, if also clinically indicated further evaluation with contrast enhanced temporal MRI may be of value to rule out a potential abnormality at this level. Otherwise unremarkable brain. No midline shift or hydrocephalus. Orbits and visualized paranasal sinuses are unremarkable. Impression: Somewhat asymmetric appearance of the internal auditory canals (with partial effacement of the CSF signal intensity on the right side). Although finding may be artifactual/due to partial volume averaging, if also clinically indicated further evaluation with contrast enhanced temporal MRI may be of value to rule out a potential abnormality at this level. No acute infarct. This document has been electronically signed by: Selina Oviedo MD on 10/01/2024 13:12:10
--- OUTSIDE RECORDS SUMMARY | 2024-09-28 10:54 | XMS_ITS | Encounter Summary ---
Author Organization [employer] Address [address] [facility] [address] [place] [address] Care Team Providers Care Tank Pumper Panelboard Name Role Phone Joseph Guerrero MD Primary Care Provider [phone] Encounter Details Date Type Department Care Team [...] Description 01/07/2025 1:00 PM EST Office Visit [facility] [address] [place] [address] Frankie, [place], OD [address] [place] [address] documented as of this encounter Visit Diagnoses Not on filedocumented in this encounter Additional Health Concerns Assessment Noted Time PHQ-9 Depression Total Score: 1 06/05/19 25 10:30 AM EDT documented as of this encounter Care Teams Tank Pumper Panelboard Relationship Specialty Start Date End Date Joseph Guerrero MD [address] [place] [id number] PCP - General Internal Medicine 11/22/17 documented as of this encounter
--- OUTSIDE RECORDS SUMMARY | 2024-09-28 10:54 | XMS_ITS | Clinical Summary ---
Author Organization [facility] Address [address] [place] [address] Care Team Providers Care Roofing Laborer Name Role Phone Lisa Verdugo MD Primary [...] WITH FOOD OR MILK 2 06/12/2017 Active [place] 3 1000 MG CAPS Take 1 capsule [...] age to complete this topic Care Teams Roofing Laborer Relationship Specialty Start Date End Date Lisa Verdugo MD PCP - General Internal Medicine 06/22/17
== END 2024-09-28 10:52 | disposition home or self-care (01) ==
LOC: HO.MRI 10:51
PROVIDERS: PCP Internal Medicine; Visit Provider Internal Medicine
DX: R42 Dizziness and giddiness (principal)
CPT/HCPCS: 70551

== ENCOUNTER → 2024-09-28 10:53 | Outpatient (BNV) | payer OTHER, SELFPAY | PROVIDERS: PCP Internal Medicine; Visit Provider Radiology Diagnostic Radiology | DX: R42 Dizziness and giddiness (principal) | CPT/HCPCS: 70551 ==